=== PATIENT | female | born 2000 | race Caucasian/White ===

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

== ENCOUNTER 2018-07-02 00:21 | Emergency (ER) | payer OTHER ==
--- NOTE | 2018-07-02 02:19 | XR ---
EXAMINATION TYPE: XR chest 2V DATE OF EXAM: 07/02/2018 COMPARISON: 07/26/2016 HISTORY: Fever and cough TECHNIQUE: Frontal and lateral views of the chest are obtained. FINDINGS: Heart and mediastinum are normal. Lungs are clear. Diaphragm is normal. Bony thorax appear s normal. IMPRESSION: Normal chest. No change.
[2018-07-02] MEDS ORDERED: ACETAMINOPHEN TAB 500 MG TAB PO STA (02:20)
--- NOTE | 2018-07-02 02:25 | ED ---
General Adult HPI - General Chief complaint: Fever Stated complaint: FEVER Time Seen by Provider: 07/02/18 01:47 Source: patient, RN notes reviewed Mode of arrival: ambulatory Limitations: no limitations - History of Present Illness Initial comments: 17-year-old female presents to the emergency determine for a chief complaint of cough 3 days. Patient states the cough is dry. Patient admits to smoking. Patient does have a history of asthma. Patient denies any shortness of breath. Patient admits to lower back pain when she coughs. Denies any urinary symptoms. Patient denies any ear pain or sore throat. Patient also states she has Nasal congestion. Patient states she last took Tylenol 12 hours ago. Patient has no other complaints at this time including shortness of breath, chest pain, abdominal pain, nausea or vomiting, headache, or visual changes. - Related Data Home Medications Medication Instructions Recorded Confirmed Pnv,Calcium 72/Iron/Folic Acid 1 tab PO DAILY 07/06/17 08/27/17 [ Plus Tablet] Previous Rx's Medication Instructions Recorded Albuterol Inhaler [Ventolin Hfa 1 - 2 puff INHALATION Q6HR PRN #1 07/02/18 Inhaler] inhaler Allergies Allergy/AdvReac Type Severity Reaction Status Date / Time No Known Allergies Allergy Verified 07/02/18 00:37 Review of Systems ROS Statement: Those systems with pertinent positive or pertinent negative responses have been documented in the HPI. ROS Other: All systems not noted in ROS Statement are negative. Past Medical History Past Medical History: Asthma Additional Past Medical History / Comment(s): pt reports hx of SVT History of Any Multi-Drug Resistant Organisms: None Reported Past Surgical History: Ablation, Cholecystectomy, Heart Catheterization Additional Past Surgical History / Comment(s): heart ablation 12/2015 Past Psychological History: Anxiety Smoking Status: Current every day smoker Past Alcohol Use History: None Reported Past Drug Use History: None Reported General Exam Limitations: no limitations General appearance: alert, in no apparent distress Head exam: Present: atraumatic, normocephalic, normal inspection Eye exam: Present: normal appearance, PERRL, EOMI. Absent: scleral icterus, conjunctival injection, periorbital swelling ENT exam: Present: normal exam, normal oropharynx, mucous membranes moist, TM's normal bilaterally, normal external ear exam, other (mild nasal congestion noted. Non tender maxillary and frontal sinuses.) Neck exam: Present: normal inspection, full ROM. Absent: tenderness, meningismus, lymphadenopathy Respiratory exam: Present: normal lung sounds bilaterally. Absent: respiratory distress, wheezes (no wheezing noted), rales, rhonchi, stridor Cardiovascular Exam: Present: regular rate, normal rhythm, normal heart sounds. Absent: systolic murmur, diastolic murmur, rubs, gallop, clicks GI/Abdominal exam: Present: soft, normal bowel sounds. Absent: distended, tenderness, guarding, rebound, rigid Neurological exam: Present: alert, oriented X3, CN II-XII intact Psychiatric exam: Present: normal affect, normal mood Course Vital Signs 07/02/18 00:36 Temperature 100 F H Pulse Rate 107 H Respiratory 18 Rate Blood Pressure 113/80 O2 Sat by Pulse 99 Oximetry Medical Decision Making - Medical Decision Making 17-year-old female presents to the emergency department for a chief complaint of cough 3 days. Patient states she had a temp of 100 at home. In the emergency department patient does have a temperature of 100 and was given Tylenol. Patient complains of a dry cough with nasal congestion. Patient is a smoker. Patient does have a history of asthma but lost her inhaler when she moved. Patient will be given a prescription for an inhaler. No wheezing in the lungs on exam. Patient does have notable congestion without erythema or swelling to the sinuses. Throat nonerythematous and patient denies any sore throat. Tympanic membranes nonerythematous.Urine shows no evidence of infection. HCG negative. Chest x-ray shows a normal chest no change. Patient likely has an upper respiratory infection caused by a viral pathogen. Did discuss Motrin and Tylenol regimen as well as following up with primary care in the next day or 2. Patient is aware that she needs to return if she has any worsening symptoms or fever that will not be decreased with Motrin or Tylenol. - Lab Data Lab Results 07/02/18 07/02/18 Range/Units 02:19 02:19 Urine Color Light Yellow Urine Appearance Clear (Clear) Urine pH 6.5 (5.0-8.0) Ur Specific [place] 1.006 (1.001-1.035) Urine Protein Negative (Negative) Urine Glucose (UA) Negative (Negative) Urine Ketones Negative (Negative) Urine Blood Negative (Negative) Urine Nitrite Negative (Negative) Urine Bilirubin Negative (Negative) Urine Urobilinogen 2.0 (<2.0) mg/dL Ur Leukocyte Esterase Negative (Negative) Urine HCG, Qual Not Detected (Not Detectd) Disposition Clinical Impression: Upper respiratory infection Disposition: HOME SELF-CARE Condition: Good Instructions: Fever in Adults (ED), Upper Respiratory Infection (ED) Additional Instructions: Please follow up with primary care in 1-2 days. Take Motrin and Tylenol alternating every 3 hours for fever. If symptoms worsen or fever does not decrease with Motrin and Tylenol immediately return to the emergency department. Prescriptions: Albuterol Inhaler [Ventolin Hfa Inhaler] 1 - 2 puff INHALATION Q6HR PRN #1 inhaler PRN Reason: Shortness Of Breath Is patient prescribed a controlled substance at d/c from ED?: No Referrals: Jose Rios MD [Primary Care Provider] - 1-2 days Time of Disposition: 03:26
[2018-07-02 02:40] LABS: Appearance,Urine Clear (Clear); Bilirubin,Urine Negative (Negative); Blood,Urine Negative (Negative); Color,Urine Light Yellow; Glucose,Urine (UA) Negative (Negative); Ketones,Urine Negative (Negative); Leukocyte Esterase,Urine Negative (Negative); Nitrite,Urine Negative (Negative); PH, Urine 6.5 (5.0-8.0); Protein,Urine Negative (Negative); Specific Gravity,Urine 1.006 (1.001-1.035)
[2018-07-02 03:36] VITALS: BP 114/56; PULSE 101; RESP 16; TEMP 98.9
== END 2018-07-02 03:36 | disposition home or self-care (01) ==
LOC: EC 00:21
DX: J06.9 Acute upper respiratory infection, unspecified (principal); J45.909 Unspecified asthma, uncomplicated; F17.200 Nicotine dependence, unspecified, uncomplicated; Z95.818 Presence of other cardiac implants and grafts
CPT/HCPCS: 71046; 81003; 81025; 99283

== ENCOUNTER 2018-08-25 19:20 | Emergency (ER) | payer OTHER ==
[2018-08-25 20:18] LABS: Appearance,Urine Clear (Clear); Bilirubin,Urine Negative (Negative); Blood,Urine Small (Negative); Color,Urine Light Yellow; Glucose,Urine (UA) Negative (Negative); Ketones,Urine Negative (Negative); Leukocyte Esterase,Urine Negative (Negative); Mucus,Urine Rare /hpf; Nitrite,Urine Negative (Negative); PH, Urine 5.5 (5.0-8.0); Protein,Urine Negative (Negative); RBC,Urine 1 /hpf (0-5); Specific Gravity,Urine 1.003 (1.001-1.035); Squamous Epithelial Cell,Urine 2 /hpf (0-4); Urobilinogen,Urine <2.0 mg/dL (<2.0); WBC,Urine 2 /hpf (0-5)
--- NOTE | 2018-08-25 20:48 | ED ---
General Adult HPI - General Chief complaint: Urogenital Stated complaint: blood in urine Time Seen by Provider: 08/25/18 20:21 Source: patient, RN notes reviewed Mode of arrival: ambulatory Limitations: no limitations - History of Present Illness Initial comments: Patient is a pleasant 18-year-old female presenting to the emergency Department with complaints of hematuria. Patient noticed a couple of episodes today. Patient did not notice this with her last episode. Patient states blood is only while urinating. Patient denies any bleeding otherwise. No blood with wiping. No rectal bleeding. Patient does have an implantable control. No abdominal pain or pelvic pain. Patient did have an episode earlier today where she felt lightheaded while washing dishes, however that has resolved. - Related Data Home Medications Medication Instructions Recorded Confirmed No Known Home Medications 08/25/18 08/25/18 Allergies Allergy/AdvReac Type Severity Reaction Status Date / Time morphine AdvReac Rash/Hives Verified 08/25/18 19:44 Review of Systems ROS Statement: Those systems with pertinent positive or pertinent negative responses have been documented in the HPI. ROS Other: All systems not noted in ROS Statement are negative. Constitutional: Denies: fever Eyes: Denies: eye pain ENT: Denies: ear pain Respiratory: Denies: cough Cardiovascular: Denies: chest pain Endocrine: Denies: fatigue Gastrointestinal: Denies: abdominal pain Genitourinary: Reports: hematuria. Denies: urgency, dysuria, frequency, discharge Musculoskeletal: Denies: back pain Skin: Denies: rash Past Medical History Past Medical History: Asthma Additional Past Medical History / Comment(s): pt reports hx of SVT History of Any Multi-Drug Resistant Organisms: None Reported Past Surgical History: Ablation, Cholecystectomy, Heart Catheterization Additional Past Surgical History / Comment(s): heart ablation 12/2015 Past Psychological History: Anxiety Smoking Status: Current every day smoker Past Alcohol Use History: None Reported Past Drug Use History: None Reported General Exam Limitations: no limitations General appearance: alert, in no apparent distress Head exam: Present: atraumatic Eye exam: Present: normal appearance, PERRL, EOMI ENT exam: Present: normal oropharynx Neck exam: Present: normal inspection Respiratory exam: Present: normal lung sounds bilaterally Cardiovascular Exam: Present: regular rate, normal rhythm GI/Abdominal exam: Present: soft. Absent: tenderness Extremities exam: Present: normal inspection. Absent: pedal edema, calf tenderness Neurological exam: Present: alert, CN II-XII intact. Absent: motor sensory deficit Expanded Neurological exam: Present: protecting the airway Speech: Present: fluid speech Cranial nerves: EOM's Intact: Normal Motor strength exam: RUE: 5, LUE: 5, RLE: 5, LLE: 5 Eye Response: (4) open spontaneously Motor Response: (6) obeys commands Verbal Response: (5) oriented Psychiatric exam: Present: normal affect, normal mood Skin exam: Present: normal color Course Vital Signs 08/25/18 19:31 Temperature 98.7 F Pulse Rate 104 H Respiratory 20 Rate Blood Pressure 116/83 O2 Sat by Pulse 100 Oximetry EKG Findings - EKG Comments: EKG Findings:: Normal sinus rhythm 92. IA 124. QRS 88. QT 348. QTC 4:30. Normal axis. Normal QRS. No acute ST change. Medical Decision Making - Lab Data Lab Results 08/25/18 08/25/18 Range/Units 19:55 19:55 Urine Color Light Yellow Urine Appearance Clear (Clear) Urine pH 5.5 (5.0-8.0) Ur Specific [place] 1.003 (1.001-1.035) Urine Protein Negative (Negative) Urine Glucose (UA) Negative (Negative) Urine Ketones Negative (Negative) Urine Blood Small H (Negative) Urine Nitrite Negative (Negative) Urine Bilirubin Negative (Negative) Urine Urobilinogen <2.0 (<2.0) mg/dL Ur Leukocyte Esterase Negative (Negative) Urine RBC 1 (0-5) /hpf Urine WBC 2 (0-5) /hpf Ur Squamous Epith Cells 2 (0-4) /hpf Urine Mucus Rare H (None) /hpf Urine HCG, Qual Not Detected (Not Detectd) Disposition Clinical Impression: Hematuria Disposition: HOME SELF-CARE Condition: Stable Instructions: Hematuria (ED) Additional Instructions: Please follow-up with primary care physician in the next day or 2 for recheck. If symptoms continue you may need urology evaluation. Consider repeat urinalysis, ultrasound or possibly cystoscopy. Have primary care physician check urine culture results. Return for pain, increased bleeding, worsening or changing symptoms or other concerns. Is patient prescribed a controlled substance at d/c from ED?: No Referrals: Christen Dias MD [STAFF PHYSICIAN] - 1-2 days Time of Disposition: 20:48
[2018-08-25 21:00] VITALS: BP 120/74; PULSE 97; RESP 16; TEMP 98.6
== END 2018-08-25 21:00 | disposition home or self-care (01) ==
LOC: EC 19:20
DX: R31.9 Hematuria, unspecified (principal); R42 Dizziness and giddiness; F17.200 Nicotine dependence, unspecified, uncomplicated; Z88.5 Allergy status to narcotic agent; Z95.818 Presence of other cardiac implants and grafts
CPT/HCPCS: 81001; 81025; 93005; 99283

== ENCOUNTER 2018-11-23 18:56 | Emergency (ER) | payer OTHER ==
--- NOTE | 2018-11-23 20:58 | XR ---
EXAMINATION TYPE: XR chest 2V DATE OF EXAM: 11/23/2018 COMPARISON: 07/02/2018 HISTORY: Cough TECHNIQUE: Frontal and lateral views of the chest are obtained. FINDINGS: Heart and mediastinum are normal. Lungs are clear. Diaphragm is normal. Bony thorax and so ft tissues appear normal. IMPRESSION: Normal chest. No change.
[2018-11-23 21:04] VITALS: BP 103/79; PULSE 100; RESP 17; TEMP 97.2
--- NOTE | 2018-11-23 21:08 | ED ---
URI HPI - General Chief Complaint: Upper Respiratory Infection Stated Complaint: coughing Time Seen by Provider: 11/23/18 20:37 Source: patient Mode of arrival: ambulatory Limitations: no limitations - History of Present Illness Initial Comments: 18-year-old male with PMH of SVT presenting today for chief complaint of cough and congestion times one week. Patient denies any fever. He doesn't that to coughing for the past week, he states this increases at night. Patient denies any productive sputum production, wheezing, stridor, fever or chills or rigors. Patient denies body aches. Patient does admit to sore throat he feels is secondary to cough. Patient denies any chest pain, dyspnea or dyspnea on exertion. Patient denies any hemoptysis. Patient denies abdominal pain, diarrhea, nausea, vomiting or any other social symptoms. Patient states that everyone in the household with similar symptoms. Remainder of ROS negative, patient denies any ear pain, sinus pressure numbness or tingling, dysuria or hematuria, constipation or diarrhea, headaches or visual changes, or any other complaints. Upon arrival patient is well-appearing, vital signs within acceptable limits. I read triage note stating back pain, pt made inquisitive face stating she does not have any sort of back pain or chest pain. - Related Data Previous Rx's Medication Instructions Recorded Ipratropium [place] 0.06%Nasal 2 spray EA NOSTRIL BID 4 Days #1 11/23/18 [Atrovent Nasal 0.06%] bottle Allergies Allergy/AdvReac Type Severity Reaction Status Date / Time amoxicillin Allergy Anaphylaxis Verified 11/23/18 19:24 morphine AdvReac Rash/Hives Verified 08/25/18 19:44 Review of Systems ROS Statement: Those systems with pertinent positive or pertinent negative responses have been documented in the HPI. ROS Other: All systems not noted in ROS Statement are negative. Past Medical History Past Medical History: Asthma Additional Past Medical History / Comment(s): pt reports hx of SVT History of Any Multi-Drug Resistant Organisms: None Reported Past Surgical History: Ablation, Cholecystectomy, Heart Catheterization Additional Past Surgical History / Comment(s): heart ablation 12/2015 Past Psychological History: Anxiety Smoking Status: Current every day smoker Past Alcohol Use History: None Reported Past Drug Use History: None Reported General Exam - General Exam Comments Initial Comments: General: The patient is awake and alert, in no distress, and does not appear acutely ill. Eye: Pupils are equal, round and reactive to light, extra-ocular movements are intact. No nystagmus. There is normal conjunctiva bilaterally. No signs of icterus. Ears, nose, mouth and throat: There are moist mucous membranes and no oral lesions. Oropharynx was not erythematous, no tonsillar enlargement exudates or lesion. Uvula midline. Tympanic membranes are not erythematous no bulging retractions effusions or tympanic membrane perforation. External auditory canal is nonedematous or erythematous. No pain to palpation the mastoid. No sinus pressure of the frontal or maxillary sinuses. Postnasal drip noted. Neck: The neck is supple, there is no tenderness or JVD. No anterior cervical lymphadenopathy. Cardiovascular: There is a regular rate and rhythm. No murmur, rub or gallop is appreciated. Respiratory: Lungs are clear to auscultation, respirations are non-labored, breath sounds are equal. No wheezes, stridor, rales, or rhonchi. No signs of consolidation on examination. Audible dry cough on exam. Gastrointestinal: Soft, non-distended, non-tender abdomen without masses or organomegaly noted. There is no rebound or guarding present. No CVA tenderness. Bowel sounds are unremarkable. Musculoskeletal: Normal ROM, no tenderness. Strength 5/5. Sensation intact. Radial pulses equal bilaterally 2+. Neurological: A&O x 3. CN II-XII intact, There are no obvious motor or sensory deficits. Coordination appears grossly intact. Speech is normal. Skin: Skin is warm and dry and no rashes or lesions are noted. Psychiatric: Cooperative, appropriate mood & affect, normal judgment. Limitations: no limitations Course Vital Signs 11/23/18 11/23/18 19:22 21:01 Temperature 98.2 F 97.2 F L Pulse Rate 121 H 100 Respiratory 20 17 Rate Blood Pressure 114/66 103/79 O2 Sat by Pulse 99 97 Oximetry Medical Decision Making - Medical Decision Making At this time I do feel patient has bronchitis, upper respiratory infection. No areas of consolidation noted on examination. Patient appears well, nontoxic. Examination revealed postnasal drip and clear rhinorrhea. Chest x-ray negative. Patient was given medications for symptomatic treatment. I do feel patient is stable for discharge with primary care follow-up in the next 1-2 days. Return parameters discussed at length the patient who verbalized understanding. Patient was discharged in stable condition after discussing the case in detail with attending physician. Who agreed impression and plan. Patient discharged in stable condition appearing well. Denied questions at this time. Disposition Clinical Impression: Bronchitis Disposition: HOME SELF-CARE Condition: Good Instructions: Upper Respiratory Infection (ED), Acute Bronchitis (ED) Additional Instructions: Please use medication as discussed. Please follow-up with family doctor in the next 2 days. Please return to emergency room if the symptoms increase or worsen or for any other concerns. Prescriptions: Ipratropium [place] 0.06%Nasal [Atrovent Nasal 0.06%] 2 spray EA NOSTRIL BID 4 Days #1 bottle Is patient prescribed a controlled substance at d/c from ED?: No Referrals: None,Stated [Primary Care Provider] - 1-2 days [facility] [NON-STAFF] - 1-2 days Time of Disposition: 21:07
== END 2018-11-23 21:13 | disposition home or self-care (01) ==
LOC: EC 18:56
DX: J40 Bronchitis, not specified as acute or chronic (principal); F17.200 Nicotine dependence, unspecified, uncomplicated; Z95.5 Presence of coronary angioplasty implant and graft; Z88.0 Allergy status to penicillin; Z88.5 Allergy status to narcotic agent
CPT/HCPCS: 71046; 99283

== ENCOUNTER 2019-01-14 21:39 | Emergency (ER) | payer OTHER ==
[2019-01-14] MEDS ORDERED: ONDANSETRON 4 MG/2 ML VIAL IVP STA (22:47)
[2019-01-14] MEDS ORDERED: SODIUM CHLORIDE 0.9% 1,000 ML IV STA (22:47)
[2019-01-14] MEDS ORDERED: KETOROLAC 30 MG/ML 1 ML VIAL IVP STA (22:47)
--- NOTE | 2019-01-14 22:59 | ED ---
Abdominal Pain HPI - General Chief Complaint: Abdominal Pain Stated Complaint: Lower rt side pain Time Seen by Provider: 01/14/19 22:05 Source: patient Mode of arrival: ambulatory Limitations: no limitations - History of Present Illness Initial Comments: 18-year-old female patient presents to the emergency department today for evaluation of abdominal pain. Patient states that pain started in the midepigastric region about 4 days ago and has migrated down to the lower right quadrant abdomen now radiating into the right flank. Patient states she has been nauseated but has not vomited. Patient states the pain seems to be worsening rather than getting better. Patient states she has had some constipation. She states she is urinating more frequently but denies any dysuria or hematuria. She denies any fevers or chills with this. Denies any abnormal vaginal bleeding or discharge. States she did take a test at home which was negative. She has had cholecystectomy in the past but no other abdominal surgeries. Patient denies any recent rash, shortness breath, chest pain, numbness, tingling, dizziness, weakness, headache, visual changes, or any other complaints. - Related Data Previous Rx's Medication Instructions Recorded Ipratropium Bone Gap 0.06%Nasal 2 spray EA NOSTRIL BID 4 Days #1 11/23/18 [Atrovent Nasal 0.06%] bottle Allergies Allergy/AdvReac Type Severity Reaction Status Date / Time amoxicillin Allergy Anaphylaxis Verified 01/14/19 22:15 morphine AdvReac Rash/Hives Verified 01/14/19 22:15 Review of Systems ROS Statement: Those systems with pertinent positive or pertinent negative responses have been documented in the HPI. ROS Other: All systems not noted in ROS Statement are negative. Past Medical History Past Medical History: Asthma Additional Past Medical History / Comment(s): pt reports hx of SVT History of Any Multi-Drug Resistant Organisms: None Reported Past Surgical History: Ablation, Cholecystectomy, Heart Catheterization Additional Past Surgical History / Comment(s): heart ablation 12/2015 Past Psychological History: Anxiety Smoking Status: Current every day smoker Past Alcohol Use History: None Reported Past Drug Use History: None Reported General Exam Limitations: no limitations General appearance: alert, in no apparent distress, other (Physical well- developed, well-nourished adult female patient in no acute distress. Vital signs upon presentation are temperature 97.8F, pulse 106, respirations 20, blood pressure 123/82, pulse ox 100% on room air.) Eye exam: Present: normal appearance, PERRL, EOMI. Absent: scleral icterus, conjunctival injection, periorbital swelling ENT exam: Present: normal exam, normal oropharynx, mucous membranes moist Respiratory exam: Present: normal lung sounds bilaterally. Absent: respiratory distress, wheezes, rales, rhonchi, stridor Cardiovascular Exam: Present: regular rate, normal rhythm, normal heart sounds. Absent: systolic murmur, diastolic murmur, rubs, gallop, clicks GI/Abdominal exam: Present: soft, tenderness (Right lower quadrant and suprapubic abdominal tenderness), normal bowel sounds. Absent: distended, guarding, rebound, rigid Back exam: Present: normal inspection. Absent: CVA tenderness (R), CVA tenderness (L) Neurological exam: Present: alert, oriented X3, CN II-XII intact Psychiatric exam: Present: normal affect, normal mood Skin exam: Present: warm, dry, intact, normal color. Absent: rash Course Vital Signs 01/14/19 21:41 Temperature 97.8 F Pulse Rate 106 H Respiratory 20 Rate Blood Pressure 123/82 O2 Sat by Pulse 100 Oximetry Medical Decision Making - Medical Decision Making 18-year-old female patient presents to the emergency department today for evaluation of abdominal pain that started in the midepigastric region and migrated to the suprapubic and right lower quadrant. Physical examination did reveal right lower quadrant and suprapubic tenderness. Labs reviewed and did reveal elevated white blood cell count at 11.4, CRP was 10.5. Patient did report mild improvement of symptoms with the administration of Toradol. We did CT abdomen and pelvis to rule out appendicitis, this was negative for any evidence of appendicitis did reveal a 2.600 m cystic lesion to the left ovary, it is unclear this is a cause for the patient's symptoms. Patient does admit to having constipation. X-ray of the abdomen shows normal stool burden. We'll discharge home with a stool softener. She is instructed to follow-up with her primary care physician and first leveler for recheck as soon as possible. Return to the emergency department for any new, worsening, or concerning symptoms. She verbalizes understanding and agrees with this plan. - Lab Data Result diagrams: 01/14/19 23:12 01/14/19 23:12 Lab Results 01/14/19 01/14/19 01/14/19 Range/Units 23:12 23:12 23:12 WBC 11.4 H (4.0-11.0) k/uL RBC 5.23 (3.80-5.40) m/uL Hgb 13.2 (11.4-16.0) gm/dL Hct 41.6 (34.0-46.0) % MCV 79.6 L (80.0-100.0) fL MCH 25.3 (25.0-35.0) pg MCHC 31.7 (31.0-37.0) g/dL RDW 17.0 H (11.5-15.5) % Plt Count 342 (150-450) k/uL Neutrophils % 60 % Lymphocytes % 33 % Monocytes % 4 % Eosinophils % 2 % Basophils % 0 % Neutrophils # 6.8 (1.3-7.7) k/uL Lymphocytes # 3.7 (1.0-4.8) k/uL Monocytes # 0.4 (0-1.0) k/uL Eosinophils # 0.2 (0-0.7) k/uL Basophils # 0.1 (0-0.2) k/uL Anisocytosis Slight Microcytosis Slight Sodium 141 (137-145) mmol/L Potassium 3.9 (3.5-5.1) mmol/L Chloride 110 H (98-107) mmol/L Carbon Dioxide 24 (22-30) mmol/L Anion Gap 7 mmol/L BUN 9 (7-17) mg/dL Creatinine 0.61 (0.52-1.04) mg/dL Est GFR (CKD-EPI)AfAm >90 (>60 ml/min/1.73 sqM) Est GFR (CKD-EPI)NonAf >90 (>60 ml/min/1.73 sqM) Glucose 98 (74-99) mg/dL Calcium 9.7 (8.4-10.2) mg/dL Total Bilirubin 0.3 (0.2-1.3) mg/dL AST 20 (14-36) U/L ALT 40 (9-52) U/L Alkaline Phosphatase 128 H (38-126) U/L C-Reactive Protein 10.5 H (<10.0) mg/L Total Protein 7.0 (6.3-8.2) g/dL Albumin 4.1 (3.5-5.0) g/dL Amylase 83 (30-110) U/L Lipase 132 (23-300) U/L Urine Color Light Yellow Urine Appearance Clear (Clear) Urine pH 6.0 (5.0-8.0) Ur Specific [place] 1.004 (1.001-1.035) Urine Protein Negative (Negative) Urine Glucose (UA) Negative (Negative) Urine Ketones Negative (Negative) Urine Blood Negative (Negative) Urine Nitrite Negative (Negative) Urine Bilirubin Negative (Negative) Urine Urobilinogen <2.0 (<2.0) mg/dL Ur Leukocyte Esterase Negative (Negative) Urine HCG, Qual (Not Detectd) 01/14/19 Range/Units 23:12 WBC (4.0-11.0) k/uL RBC (3.80-5.40) m/uL Hgb (11.4-16.0) gm/dL Hct (34.0-46.0) % MCV (80.0-100.0) fL MCH (25.0-35.0) pg MCHC (31.0-37.0) g/dL RDW (11.5-15.5) % Plt Count (150-450) k/uL Neutrophils % % Lymphocytes % % Monocytes % % Eosinophils % % Basophils % % Neutrophils # (1.3-7.7) k/uL Lymphocytes # (1.0-4.8) k/uL Monocytes # (0-1.0) k/uL Eosinophils # (0-0.7) k/uL Basophils # (0-0.2) k/uL Anisocytosis Microcytosis Sodium (137-145) mmol/L Potassium (3.5-5.1) mmol/L Chloride (98-107) mmol/L Carbon Dioxide (22-30) mmol/L Anion Gap mmol/L BUN (7-17) mg/dL Creatinine (0.52-1.04) mg/dL Est GFR (CKD-EPI)AfAm (>60 ml/min/1.73 sqM) Est GFR (CKD-EPI)NonAf (>60 ml/min/1.73 sqM) Glucose (74-99) mg/dL Calcium (8.4-10.2) mg/dL Total Bilirubin (0.2-1.3) mg/dL AST (14-36) U/L ALT (9-52) U/L Alkaline Phosphatase (38-126) U/L C-Reactive Protein (<10.0) mg/L Total Protein (6.3-8.2) g/dL Albumin (3.5-5.0) g/dL Amylase (30-110) U/L Lipase (23-300) U/L Urine Color Urine Appearance (Clear) Urine pH (5.0-8.0) Ur Specific [place] (1.001-1.035) Urine Protein (Negative) Urine Glucose (UA) (Negative) Urine Ketones (Negative) Urine Blood (Negative) Urine Nitrite (Negative) Urine Bilirubin (Negative) Urine Urobilinogen (<2.0) mg/dL Ur Leukocyte Esterase (Negative) Urine HCG, Qual Not Detected (Not Detectd) - Radiology Data Radiology results: report reviewed, image reviewed Two-view x-rays of the abdomen is obtained. Report was reviewed in its entirety. Impression by Dr. Orourke shows nonspecific bowel gas pattern with paucity of small bowel gas. Some gas and stool seen throughout the colon. Status post cholecystectomy noted. CT abdomen and pelvis is obtained. Report was reviewed in its entirety. Impression by Dr. Orourke shows status post cholecystectomy. 2.6 cm cystic lesion of the left ovary. Normal appendix. Disposition Clinical Impression: Abdominal pain, Left ovarian cyst Disposition: HOME SELF-CARE Condition: Good Instructions (If sedation given, give patient instructions): Abdominal Pain (ED ), Ovarian Cyst (ED) Additional Instructions: Increase fluids. Take ibuprofen for for pain control. Follow-up with her primary care physician for recheck in 1-2 days. Follow-up with gynecology as needed. Return to the emergency department immediately for any new, worsening, or concerning symptoms. Is patient prescribed a controlled substance at d/c from ED?: No Referrals: None,Stated [Primary Care Provider] - 1-2 days Time of Disposition: 00:56
[2019-01-14 23:20] LABS: Anisocytosis Slight; Appearance,Urine Clear (Clear); Basophils # (A) 0.1 k/uL (0-0.2); Basophils % (A) 0 %; Bilirubin,Urine Negative (Negative); Blood,Urine Negative (Negative); Color,Urine Light Yellow; Eosinophils # (A) 0.2 k/uL (0-0.7); Eosinophils % (A) 2 %; Glucose,Urine (UA) Negative (Negative); HCT 41.6 % (34.0-46.0); HGB 13.2 gm/dL (11.4-16.0); Ketones,Urine Negative (Negative); Leukocyte Esterase,Urine Negative (Negative); Lymphocytes # (A) 3.7 k/uL (1.0-4.8); Lymphocytes % (A) 33 %; MCH 25.3 pg (25.0-35.0); MCHC 31.7 g/dL (31.0-37.0); MCV 79.6 fL (80.0-100.0); Mean Platelet Volume 7.3; Microcytosis Slight; Monocytes # (A) 0.4 k/uL (0-1.0); Monocytes % (A) 4 %; Neutrophils # (A) 6.8 k/uL (1.3-7.7); Neutrophils % (A) 60 %; Nitrite,Urine Negative (Negative); Platelet Count 342 k/uL (150-450); Protein,Urine Negative (Negative); RBC 5.23 m/uL (3.80-5.40); Specific Gravity,Urine 1.004 (1.001-1.035); Urobilinogen,Urine <2.0 mg/dL (<2.0); WBC 11.4 k/uL (4.0-11.0)
[2019-01-14 23:31] LABS: ALT 40 U/L (9-52); AST 20 U/L (14-36); Albumin 4.1 g/dL (3.5-5.0); Alkaline Phosphatase 128 U/L (38-126); Amylase 83 U/L (30-110); Anion Gap 7 mmol/L; Blood Urea Nitrogen 9 mg/dL (7-17); C Reactive Protein 10.5 mg/L (<10.0); Calcium 9.7 mg/dL (8.4-10.2); Carbon Dioxide 24 mmol/L (22-30); Chloride 110 mmol/L (98-107); Glucose 98 mg/dL (74-99); Lipase 132 U/L (23-300); Potassium 3.9 mmol/L (3.5-5.1); Sodium 141 mmol/L (137-145); Total Bilirubin 0.3 mg/dL (0.2-1.3)
--- NOTE | 2019-01-14 23:46 | XR ---
History: ITS.REASON XR Reason: abdominal pain Exam: XR KUB 2 total images Comparison: 08/21/2016 FINDINGS: Nonspecific bowel gas pattern with paucity of small bowel gas. Some gas and stool is seen throughout the colon. No gaseous distention of bowel or free air identified. Status post cholecystectomy again noted. The visualized lung bases appear clear. The visualized osseous structures appear unremarkable. IMPRESSION: Nonspecific bowel gas pattern with paucity of small bowel gas. Some gas and stool is seen throughout the colon. Status post cholecystectomy again noted.
--- NOTE | 2019-01-15 00:49 | CT ---
History: ITS.REASON CT Reason: Pain Exam: CT ABDOMEN + PELVIS With Contrast Technique more: CTDI is 10.6 mGy and DLP is 1080.7 mGy-cm. Technique more: This CT exam was performed using one or more of the following dose reduction techniques: automated exposure control, adjustment of the mA and/or kV according to patient size, and/or use of iterative reconstruction technique. Comparison: FINDINGS: The lung bases are clear. Abdominal solid organs and abdominal aorta appear within limits. Status post cholecystectomy. No bowel dilation or free air. Normal caliber appendix without secondary signs. 2.6 cm cystic lesion left ovary. The right ovary, uterus and bladder appear within limits. No free fluid. IMPRESSION: Status post cholecystectomy. 2.6 cm cystic lesion left ovary. May correlate further with ultrasound as warranted.
[2019-01-15 01:10] VITALS: BP 115/83; PULSE 89; RESP 18; TEMP 97.9
== END 2019-01-15 01:10 | disposition home or self-care (01) ==
LOC: EC 21:39
DX: N83.202 Unspecified ovarian cyst, left side (principal); R10.31 Right lower quadrant pain; K59.00 Constipation, unspecified; D72.829 Elevated white blood cell count, unspecified; R35.0 Frequency of micturition; F17.200 Nicotine dependence, unspecified, uncomplicated; Z88.0 Allergy status to penicillin; Z88.5 Allergy status to narcotic agent; Z90.49 Acquired absence of other specified parts of digestive tract
CPT/HCPCS: 99284; 96374; 96375; 96361; 36415; 80053; 82150; 83690; 85025; 86140; 81003; 81025; 74018; 74177; J2405; J1885; Q9967

== ENCOUNTER 2019-01-19 15:17 | Emergency (ER) | payer OTHER ==
[2019-01-19] MEDS ORDERED: SODIUM CHLORIDE 0.9% 1,000 ML IV STA (16:37)
[2019-01-19] MEDS ORDERED: ONDANSETRON 4 MG/2 ML VIAL IVP STA (16:37)
[2019-01-19] MEDS ORDERED: KETOROLAC 30 MG/ML 1 ML VIAL IVP STA (16:37)
[2019-01-19] MEDS ORDERED: PANTOPRAZOLE 40 MG/10 ML VIAL IVP STA (16:37)
--- NOTE | 2019-01-19 16:41 | ED ---
Abdominal Pain HPI - General Chief Complaint: Abdominal Pain Stated Complaint: Right lower abd pain, vomiting Time Seen by Provider: 01/19/19 16:27 Source: patient, RN notes reviewed, old records reviewed Mode of arrival: ambulatory Limitations: no limitations - History of Present Illness Initial Comments: Patient is a 18 year old female for reevaluation for RLQ abdominal pain. Patient was given emergency department 2 days ago for similar complaints. Had a full workup including computed tomography scan. Everything was benign. Patient reports that she's had no fevers or chills. She reports normal examination in bowel habits. Patient states that she is in the pain was persistent and she needed to be reevaluated. Patient has had nausea but no vomiting. - Related Data Previous Rx's Medication Instructions Recorded Famotidine [Pepcid] 20 mg PO BID #20 tablet 01/19/19 Ondansetron Odt [Zofran Odt] 4 mg PO Q8HR PRN #12 tab 01/19/19 Allergies Allergy/AdvReac Type Severity Reaction Status Date / Time amoxicillin Allergy Anaphylaxis Verified 01/19/19 17:34 morphine AdvReac Rash/Hives Verified 01/19/19 17:34 Review of Systems ROS Statement: Those systems with pertinent positive or pertinent negative responses have been documented in the HPI. ROS Other: All systems not noted in ROS Statement are negative. Past Medical History Past Medical History: Asthma Additional Past Medical History / Comment(s): pt reports hx of SVT History of Any Multi-Drug Resistant Organisms: None Reported Past Surgical History: Ablation, Cholecystectomy, Heart Catheterization Additional Past Surgical History / Comment(s): heart ablation 12/2015 d and c Past Psychological History: Anxiety Smoking Status: Current every day smoker Past Alcohol Use History: None Reported Past Drug Use History: None Reported General Exam - General Exam Comments Initial Comments: 18-year-old female. Alert and oriented 3. No distress. Limitations: no limitations General appearance: alert Head exam: Present: atraumatic, normocephalic, normal inspection Eye exam: Present: normal appearance, PERRL, EOMI. Absent: scleral icterus, conjunctival injection, periorbital swelling ENT exam: Present: normal exam, mucous membranes moist Neck exam: Present: normal inspection. Absent: tenderness, meningismus, lymphadenopathy Respiratory exam: Present: normal lung sounds bilaterally. Absent: respiratory distress, wheezes, rales, rhonchi, stridor Cardiovascular Exam: Present: regular rate, normal rhythm, normal heart sounds. Absent: systolic murmur, diastolic murmur, rubs, gallop, clicks GI/Abdominal exam: Present: soft, tenderness (minimal right lower quadrant and right upper quadrant tenderness. No guarding rebound tenderness.), normal bowel sounds. Absent: distended, guarding, rebound, rigid Extremities exam: Present: normal inspection, full ROM, normal capillary refill. Absent: tenderness, pedal edema, joint swelling, calf tenderness Back exam: Present: normal inspection Neurological exam: Present: alert, oriented X3, CN II-XII intact Psychiatric exam: Present: normal affect, normal mood Skin exam: Present: warm, dry, intact, normal color. Absent: rash Course Vital Signs 01/19/19 01/19/19 15:30 18:13 Temperature 98.2 F 97.7 F Pulse Rate 109 H 96 Respiratory 20 16 Rate Blood Pressure 110/72 124/75 O2 Sat by Pulse 98 99 Oximetry Medical Decision Making - Medical Decision Making Patient is 18-year-old female up for reevaluation of her right lower quadrant abdominal pain. She had a computed tomography scan that time she'll show up ovarian cyst. Patient has had no fever this time. She is given IV fluid and labwork obtained. Lab work is stable compared to her last one. Patient has had no other symptoms that are concerning at this time. She's had no rebound tenderness or guarding on exam. Discussed no need to repeat CT. Patient agrees. Discussed that Patient should follow-up with her PCP. ASIANS WERE ANSWERED AND RETURN PARAMETERS WERE DISCUSSED. - Lab Data Result diagrams: 01/19/19 16:57 01/19/19 16:57 Lab Results 01/19/19 01/19/19 01/19/19 Range/Units 16:57 16:57 16:57 WBC (4.0-11.0) k/uL RBC (3.80-5.40) m/uL Hgb (11.4-16.0) gm/dL Hct (34.0-46.0) % MCV (80.0-100.0) fL MCH (25.0-35.0) pg MCHC (31.0-37.0) g/dL RDW (11.5-15.5) % Plt Count (150-450) k/uL Neutrophils % % Lymphocytes % % Monocytes % % Eosinophils % % Basophils % % Neutrophils # (1.3-7.7) k/uL Lymphocytes # (1.0-4.8) k/uL Monocytes # (0-1.0) k/uL Eosinophils # (0-0.7) k/uL Basophils # (0-0.2) k/uL Anisocytosis Microcytosis Sodium 140 (137-145) mmol/L Potassium 4.6 (3.5-5.1) mmol/L Chloride 111 H (98-107) mmol/L Carbon Dioxide 20 L (22-30) mmol/L Anion Gap 9 mmol/L BUN 13 (7-17) mg/dL Creatinine 0.57 (0.52-1.04) mg/dL Est GFR (CKD-EPI)AfAm >90 (>60 ml/min/1.73 sqM) Est GFR (CKD-EPI)NonAf >90 (>60 ml/min/1.73 sqM) Glucose 89 (74-99) mg/dL Calcium 9.7 (8.4-10.2) mg/dL Total Bilirubin 0.4 (0.2-1.3) mg/dL AST 24 (14-36) U/L ALT 29 (9-52) U/L Alkaline Phosphatase 141 H (38-126) U/L Total Protein 7.1 (6.3-8.2) g/dL Albumin 4.1 (3.5-5.0) g/dL Amylase 86 (30-110) U/L Lipase 137 (23-300) U/L Urine Color Yellow Urine Appearance Cloudy H (Clear) Urine pH 6.0 (5.0-8.0) Ur Specific [place] 1.020 (1.001-1.035) Urine Protein Negative (Negative) Urine Glucose (UA) Negative (Negative) Urine Ketones Negative (Negative) Urine Blood Negative (Negative) Urine Nitrite Negative (Negative) Urine Bilirubin Negative (Negative) Urine Urobilinogen <2.0 (<2.0) mg/dL Ur Leukocyte Esterase Negative (Negative) Urine RBC 1 (0-5) /hpf Urine WBC 3 (0-5) /hpf Ur Squamous Epith Cells 11 H (0-4) /hpf Urine Mucus Occasional H (None) /hpf Urine HCG, Qual Not Detected (Not Detectd) 01/19/19 Range/Units 16:57 WBC 12.7 H (4.0-11.0) k/uL RBC 5.09 (3.80-5.40) m/uL Hgb 12.9 (11.4-16.0) gm/dL Hct 40.6 (34.0-46.0) % MCV 79.7 L (80.0-100.0) fL MCH 25.4 (25.0-35.0) pg MCHC 31.9 (31.0-37.0) g/dL RDW 16.6 H (11.5-15.5) % Plt Count 349 (150-450) k/uL Neutrophils % 68 % Lymphocytes % 25 % Monocytes % 4 % Eosinophils % 3 % Basophils % 1 % Neutrophils # 8.6 H (1.3-7.7) k/uL Lymphocytes # 3.1 (1.0-4.8) k/uL Monocytes # 0.5 (0-1.0) k/uL Eosinophils # 0.4 (0-0.7) k/uL Basophils # 0.1 (0-0.2) k/uL Anisocytosis Slight Microcytosis Slight Sodium (137-145) mmol/L Potassium (3.5-5.1) mmol/L Chloride (98-107) mmol/L Carbon Dioxide (22-30) mmol/L Anion Gap mmol/L BUN (7-17) mg/dL Creatinine (0.52-1.04) mg/dL Est GFR (CKD-EPI)AfAm (>60 ml/min/1.73 sqM) Est GFR (CKD-EPI)NonAf (>60 ml/min/1.73 sqM) Glucose (74-99) mg/dL Calcium (8.4-10.2) mg/dL Total Bilirubin (0.2-1.3) mg/dL AST (14-36) U/L ALT (9-52) U/L Alkaline Phosphatase (38-126) U/L Total Protein (6.3-8.2) g/dL Albumin (3.5-5.0) g/dL Amylase (30-110) U/L Lipase (23-300) U/L Urine Color Urine Appearance (Clear) Urine pH (5.0-8.0) Ur Specific [place] (1.001-1.035) Urine Protein (Negative) Urine Glucose (UA) (Negative) Urine Ketones (Negative) Urine Blood (Negative) Urine Nitrite (Negative) Urine Bilirubin (Negative) Urine Urobilinogen (<2.0) mg/dL Ur Leukocyte Esterase (Negative) Urine RBC (0-5) /hpf Urine WBC (0-5) /hpf Ur Squamous Epith Cells (0-4) /hpf Urine Mucus (None) /hpf Urine HCG, Qual (Not Detectd) Disposition Clinical Impression: Nausea & vomiting, Gastritis Disposition: HOME SELF-CARE Condition: Good Instructions (If sedation given, give patient instructions): Gastritis (ED), Acute Nausea and Vomiting (ED) Additional Instructions: Patient has a follow-up with primary care physician. Return to emergency department if any alarming signs or symptoms occur. Prescriptions: Famotidine [Pepcid] 20 mg PO BID #20 tablet Ondansetron Odt [Zofran Odt] 4 mg PO Q8HR PRN #12 tab PRN Reason: Nausea Is patient prescribed a controlled substance at d/c from ED?: No Referrals: None,Stated [Primary Care Provider] - 1-2 days Christen Dias MD [STAFF PHYSICIAN] - 1-2 days Vickie Sorensen MD [STAFF PHYSICIAN] - 1-2 days Time of Disposition: 17:26
[2019-01-19 17:18] LABS: Anisocytosis Slight; Basophils # (A) 0.1 k/uL (0-0.2); Basophils % (A) 1 %; Eosinophils # (A) 0.4 k/uL (0-0.7); Eosinophils % (A) 3 %; HCT 40.6 % (34.0-46.0); HGB 12.9 gm/dL (11.4-16.0); Lymphocytes # (A) 3.1 k/uL (1.0-4.8); Lymphocytes % (A) 25 %; MCH 25.4 pg (25.0-35.0); MCHC 31.9 g/dL (31.0-37.0); MCV 79.7 fL (80.0-100.0); Mean Platelet Volume 6.8; Microcytosis Slight; Monocytes # (A) 0.5 k/uL (0-1.0); Monocytes % (A) 4 %; Neutrophils # (A) 8.6 k/uL (1.3-7.7); Neutrophils % (A) 68 %; Platelet Count 349 k/uL (150-450); RBC 5.09 m/uL (3.80-5.40); RDW 16.6 % (11.5-15.5); WBC 12.7 k/uL (4.0-11.0)
[2019-01-19 17:19] LABS: Appearance,Urine Cloudy (Clear); Bilirubin,Urine Negative (Negative); Blood,Urine Negative (Negative); Color,Urine Yellow; Glucose,Urine (UA) Negative (Negative); Ketones,Urine Negative (Negative); Leukocyte Esterase,Urine Negative (Negative); Mucus,Urine Occasional /hpf; Nitrite,Urine Negative (Negative); Protein,Urine Negative (Negative); RBC,Urine 1 /hpf (0-5); Squamous Epithelial Cell,Urine 11 /hpf (0-4); Urobilinogen,Urine <2.0 mg/dL (<2.0); WBC,Urine 3 /hpf (0-5)
[2019-01-19 17:23] LABS: ALT 29 U/L (9-52); AST 24 U/L (14-36); Albumin 4.1 g/dL (3.5-5.0); Alkaline Phosphatase 141 U/L (38-126); Amylase 86 U/L (30-110); Anion Gap 9 mmol/L; Blood Urea Nitrogen 13 mg/dL (7-17); Calcium 9.7 mg/dL (8.4-10.2); Carbon Dioxide 20 mmol/L (22-30); Chloride 111 mmol/L (98-107); Glucose 89 mg/dL (74-99); Lipase 137 U/L (23-300); Potassium 4.6 mmol/L (3.5-5.1); Sodium 140 mmol/L (137-145); Total Bilirubin 0.4 mg/dL (0.2-1.3); Total Protein 7.1 g/dL (6.3-8.2)
[2019-01-19 18:15] VITALS: BP 124/75; PULSE 96; RESP 16; TEMP 97.7
== END 2019-01-19 18:18 | disposition home or self-care (01) ==
LOC: EC 15:17
DX: K29.70 Gastritis, unspecified, without bleeding (principal); F17.200 Nicotine dependence, unspecified, uncomplicated; Z88.0 Allergy status to penicillin; Z88.5 Allergy status to narcotic agent; Z90.49 Acquired absence of other specified parts of digestive tract; Z95.818 Presence of other cardiac implants and grafts
CPT/HCPCS: 36415; 80053; 82150; 83690; 85025; 81001; 81025; 99284; 96374; 96375 ×2; 96361; J2405; J1885; C9113

== ENCOUNTER 2019-03-27 18:37 | Emergency (ER) | payer OTHER ==
[2019-03-27 18:42] VITALS: BP 105/69; RESP 18
[2019-03-27] MEDS ORDERED: ONDANSETRON 4 MG/2 ML VIAL IVP STA (18:44)
[2019-03-27] MEDS ORDERED: SODIUM CHLORIDE 0.9% 1,000 ML IV STA (18:44)
--- NOTE | 2019-03-27 19:08 | ED ---
General Adult HPI - General Chief complaint: Nausea/Vomiting/Diarrhea Stated complaint: Vomiting/chest pain Time Seen by Provider: 03/27/19 18:43 Source: patient Mode of arrival: ambulatory Limitations: no limitations - History of Present Illness Initial comments: Dictation was produced using [employer] dictation software. please excuse any grammatical, word or spelling errors. Chief Complaint: 18-year-old female no significant past medical history presents with nausea vomiting diarrhea. History of Present Illness: 18-year-old female presents with nausea vomiting diarrhea. Patient states she had the symptoms for approximately one day. Denies any overt sick contacts. Patient states she has some mild right upper quadrant epigastric pain. Patient states her diarrhea is nonbloody nonbilious. Patient's emesis is also nonbloody and nonbilious. Patient states she tried to drink water throughout up however she was able to drink some Gatorade and keep it down. Denies any constitutional symptoms. The ROS documented in this emergency department record has been reviewed and confirmed by me. Those systems with pertinent positive or negative responses have been documented in the HPI. All other systems are other negative and/or noncontributory. PHYSICAL EXAM: General Impression: Alert and oriented x3, not in acute distress HEENT: Normocephalic atraumatic, extra-ocular movements intact, pupils equal and reactive to light bilaterally, mucous membranes moist. Cardiovascular: Heart regular rate and rhythm, S1&S2 audible, no murmurs, rubs or gallops Chest: Lungs clear to auscultation bilaterally, no rhonchi, no wheeze, no rales Abdomen: Bowel sounds present, abdomen soft, mild tenderness in the right upper quadrant, non-distended, no organomegaly, negative Mitchell sign Musculoskeletal: Pulses present and equal in all extremities, no peripheral edema Motor: no focal deficits noted Neurological: CN II-XII grossly intact, no focal motor or sensory deficits noted Skin: Intact with no visualized rashes Psych: Normal affect and mood ED course: 18-year-old female presents with chief complaint of nausea vomiting diarrhea. Vital signs upon arrival shows heart rate of 133, rest of vital signs within acceptable limits. Laboratory evaluation obtained. Patient is leukocytosis of 23.9. Leukocytosis is of unknown etiology and the patient not showing any localizing symptoms to suggest infection. Metabolic panel is unremarkable. Patient does have mild gap acidosis likely secondary to dehydration. Urinalysis is unremarkable. Given degree of leukocytosis imaging studies were pursued. A bladder ultrasound and abdomen CT pelvis is unremarkable. Patient given fluids and antiemetics with improvement of symptoms. Patient reevaluated found be stable medical condition. Patient tolerate by mouth. Patient clear for discharge. Patient told to follow-up with primary care physician upon discharge. Return parameters discussed. Repeat vital signs are improved. EKG interpretation: Ventricular rate [default value]. No VA prolongation, no QTC prolongation, no ST or T-wave changes noted. EKG compared to [default value] showing no changes. Overall, this EKG is unremarkable - Related Data Home Medications Medication Instructions Recorded Confirmed Aviane-28 1 tab PO DAILY 03/27/19 03/27/19 Previous Rx's Medication Instructions Recorded Ondansetron Odt [Zofran Odt] 4 mg PO Q8HR PRN #12 tab 03/27/19 Allergies Allergy/AdvReac Type Severity Reaction Status Date / Time amoxicillin Allergy Anaphylaxis Verified 03/27/19 19:16 morphine AdvReac Rash/Hives Verified 03/27/19 19:16 Review of Systems ROS Statement: Those systems with pertinent positive or pertinent negative responses have been documented in the HPI. ROS Other: All systems not noted in ROS Statement are negative. Past Medical History Past Medical History: Asthma Additional Past Medical History / Comment(s): pt reports hx of SVT History of Any Multi-Drug Resistant Organisms: None Reported Past Surgical History: Ablation, Cholecystectomy, Heart Catheterization Additional Past Surgical History / Comment(s): heart ablation 12/2015 d and c Past Psychological History: Anxiety Smoking Status: Current every day smoker Past Alcohol Use History: None Reported Past Drug Use History: None Reported General Exam Limitations: no limitations Course Vital Signs 03/27/19 03/27/19 18:38 20:28 Temperature 99.2 F 98.9 F Pulse Rate 133 H 111 H Respiratory 18 18 Rate Blood Pressure 105/69 O2 Sat by Pulse 97 99 Oximetry Medical Decision Making - Lab Data Result diagrams: 03/27/19 19:09 03/27/19 19:09 Lab Results 03/27/19 03/27/19 03/27/19 Range/Units 18:57 18:57 19:09 WBC 23.9 H (4.0-11.0) k/uL RBC 5.59 H (3.80-5.40) m/uL Hgb 14.5 (11.4-16.0) gm/dL Hct 45.3 (34.0-46.0) % MCV 81.0 (80.0-100.0) fL MCH 25.9 (25.0-35.0) pg MCHC 32.0 (31.0-37.0) g/dL RDW 15.7 H (11.5-15.5) % Plt Count 394 (150-450) k/uL Neutrophils % 93 % Lymphocytes % 4 % Monocytes % 3 % Eosinophils % 0 % Basophils % 0 % Neutrophils # 22.2 H (1.3-7.7) k/uL Lymphocytes # 0.9 L (1.0-4.8) k/uL Monocytes # 0.6 (0-1.0) k/uL Eosinophils # 0.1 (0-0.7) k/uL Basophils # 0.0 (0-0.2) k/uL Sodium (137-145) mmol/L Potassium (3.5-5.1) mmol/L Chloride (98-107) mmol/L Carbon Dioxide (22-30) mmol/L Anion Gap mmol/L BUN (7-17) mg/dL Creatinine (0.52-1.04) mg/dL Est GFR (CKD-EPI)AfAm (>60 ml/min/1.73 sqM) Est GFR (CKD-EPI)NonAf (>60 ml/min/1.73 sqM) Glucose (74-99) mg/dL Calcium (8.4-10.2) mg/dL Total Bilirubin (0.2-1.3) mg/dL AST (14-36) U/L ALT (9-52) U/L Alkaline Phosphatase (38-126) U/L Total Protein (6.3-8.2) g/dL Albumin (3.5-5.0) g/dL Urine Color Yellow Urine Appearance Cloudy H (Clear) Urine pH 6.0 (5.0-8.0) Ur Specific [place] 1.035 (1.001-1.035) Urine Protein Trace H (Negative) Urine Glucose (UA) Negative (Negative) Urine Ketones Negative (Negative) Urine Blood Small H (Negative) Urine Nitrite Negative (Negative) Urine Bilirubin Negative (Negative) Urine Urobilinogen <2.0 (<2.0) mg/dL Ur Leukocyte Esterase Negative (Negative) Urine RBC 7 H (0-5) /hpf Urine WBC 4 (0-5) /hpf Ur Squamous Epith Cells 13 H (0-4) /hpf Urine Mucus Few H (None) /hpf Urine HCG, Qual Not Detected (Not Detectd) 03/27/19 Range/Units 19:09 WBC (4.0-11.0) k/uL RBC (3.80-5.40) m/uL Hgb (11.4-16.0) gm/dL Hct (34.0-46.0) % MCV (80.0-100.0) fL MCH (25.0-35.0) pg MCHC (31.0-37.0) g/dL RDW (11.5-15.5) % Plt Count (150-450) k/uL Neutrophils % % Lymphocytes % % Monocytes % % Eosinophils % % Basophils % % Neutrophils # (1.3-7.7) k/uL Lymphocytes # (1.0-4.8) k/uL Monocytes # (0-1.0) k/uL Eosinophils # (0-0.7) k/uL Basophils # (0-0.2) k/uL Sodium 139 (137-145) mmol/L Potassium 4.3 (3.5-5.1) mmol/L Chloride 106 (98-107) mmol/L Carbon Dioxide 21 L (22-30) mmol/L Anion Gap 12 mmol/L BUN 13 (7-17) mg/dL Creatinine 0.53 (0.52-1.04) mg/dL Est GFR (CKD-EPI)AfAm >90 (>60 ml/min/1.73 sqM) Est GFR (CKD-EPI)NonAf >90 (>60 ml/min/1.73 sqM) Glucose 120 H (74-99) mg/dL Calcium 9.7 (8.4-10.2) mg/dL Total Bilirubin 0.7 (0.2-1.3) mg/dL AST 22 (14-36) U/L ALT 29 (9-52) U/L Alkaline Phosphatase 142 H (38-126) U/L Total Protein 7.5 (6.3-8.2) g/dL Albumin 4.6 (3.5-5.0) g/dL Urine Color Urine Appearance (Clear) Urine pH (5.0-8.0) Ur Specific [place] (1.001-1.035) Urine Protein (Negative) Urine Glucose (UA) (Negative) Urine Ketones (Negative) Urine Blood (Negative) Urine Nitrite (Negative) Urine Bilirubin (Negative) Urine Urobilinogen (<2.0) mg/dL Ur Leukocyte Esterase (Negative) Urine RBC (0-5) /hpf Urine WBC (0-5) /hpf Ur Squamous Epith Cells (0-4) /hpf Urine Mucus (None) /hpf Urine HCG, Qual (Not Detectd) Disposition Clinical Impression: Gastroenteritis Disposition: HOME SELF-CARE Condition: Good Instructions (If sedation given, give patient instructions): Acute Nausea and Vomiting (ED), Acute Diarrhea (ED) Prescriptions: Ondansetron Odt [Zofran Odt] 4 mg PO Q8HR PRN #12 tab PRN Reason: Nausea Is patient prescribed a controlled substance at d/c from ED?: No Referrals: Karen Bull MD [REFERRING] - 1-2 days Time of Disposition: 20:58
[2019-03-27 19:12] LABS: Appearance,Urine Cloudy (Clear); Bilirubin,Urine Negative (Negative); Blood,Urine Small (Negative); Color,Urine Yellow; Glucose,Urine (UA) Negative (Negative); Ketones,Urine Negative (Negative); Leukocyte Esterase,Urine Negative (Negative); Mucus,Urine Few /hpf; Nitrite,Urine Negative (Negative); Protein,Urine Trace (Negative); RBC,Urine 7 /hpf (0-5); Specific Gravity,Urine 1.035 (1.001-1.035); Squamous Epithelial Cell,Urine 13 /hpf (0-4); Urobilinogen,Urine <2.0 mg/dL (<2.0); WBC,Urine 4 /hpf (0-5)
[2019-03-27 19:19] LABS: Basophils % (A) 0 %; Eosinophils # (A) 0.1 k/uL (0-0.7); Eosinophils % (A) 0 %; HCT 45.3 % (34.0-46.0); HGB 14.5 gm/dL (11.4-16.0); Lymphocytes # (A) 0.9 k/uL (1.0-4.8); Lymphocytes % (A) 4 %; MCH 25.9 pg (25.0-35.0); Mean Platelet Volume 7.7; Monocytes # (A) 0.6 k/uL (0-1.0); Monocytes % (A) 3 %; Neutrophils # (A) 22.2 k/uL (1.3-7.7); Neutrophils % (A) 93 %; Platelet Count 394 k/uL (150-450); RBC 5.59 m/uL (3.80-5.40); RDW 15.7 % (11.5-15.5); WBC 23.9 k/uL (4.0-11.0)
[2019-03-27 19:27] LABS: ALT 29 U/L (9-52); AST 22 U/L (14-36); Albumin 4.6 g/dL (3.5-5.0); Alkaline Phosphatase 142 U/L (38-126); Anion Gap 12 mmol/L; Blood Urea Nitrogen 13 mg/dL (7-17); Calcium 9.7 mg/dL (8.4-10.2); Carbon Dioxide 21 mmol/L (22-30); Chloride 106 mmol/L (98-107); Glucose 120 mg/dL (74-99); Potassium 4.3 mmol/L (3.5-5.1); Sodium 139 mmol/L (137-145); Total Bilirubin 0.7 mg/dL (0.2-1.3); Total Protein 7.5 g/dL (6.3-8.2)
--- NOTE | 2019-03-27 20:20 | CT ---
EXAMINATION TYPE: CT abdomen pelvis w con DATE OF EXAM: 03/27/2019 HISTORY: Vomiting w/racing heart feeling. Pt. states they have hx of SVT. Hx of ablation, heart cath, cholecystectomy. Isovue 300/[address] ml[address] DLP: 933.6mGycm Automated Exposure Control for Dose Reduction was Utilized. CONTRAST: CT scan of the abdomen and pelvis is performed without oral but with IV Contrast, patient injected wi th 100 mL of Isovue 300. COMPARISON: CT abdomen and pelvis January 15, 2019 FINDINGS: LUNG BASES: No significant abnormality is appreciated. LIVER/GB: Cholecystectomy clips are present. PANCREAS: No significant abnormality is seen. SPLEEN: No significant abnormality is seen. ADRENALS: No significant abnormality is seen. KIDNEYS: No significant abnormality is seen. BOWEL: Evaluation bowel is suboptimal secondary to lack of enteric contrast. No suspicious small or l arge bowel dilatation. UTERUS/ADNEXA: Anteverted uterus is present in both ovaries are seen, right slightly larger than left with roughly 2.0 cm prominent follicle or simple small ovarian cysts suspected. LYMPH NODES: No greater than 1cm abdominal or pelvic lymph nodes are appreciated. OSSEOUS STRUCTURES: Transitional-type vertebra at lumbosacral junction is redemonstrated. OTHER: Surgical clip anterior right upper pelvis axial image 68 is redemonstrated. IMPRESSION: No bowel obstruction. No significant new or acute finding is seen to account for patient' s clinical symptoms.
[2019-03-27 20:28] VITALS: PULSE 111; TEMP 98.9
--- NOTE | 2019-03-27 20:28 | US ---
EXAMINATION TYPE: US gallbladder DATE OF EXAM: 03/27/2019 COMPARISON: CT abdomen pelvis earlier today CLINICAL HISTORY: Pain. Chest pain. Hx of GB removal x 6 years ago. EXAM MEASUREMENTS: Liver Length: 15.2 cm CBD: 0.3 cm CHD: 0.2 cm Right Kidney: 10.0 x 4.7 x 4.8 cm Pancreas: body and tail obscured by bowel gas Liver: wnl Gallbladder: Surgically absent Evidence for sonographic Mitchell's sign: neg CBD: wnl CHD: wnl Right Kidney: wnl Visualized pancreas shows no mass or ductal dilatation. Portions are secured by overlying bowel gas o n ultrasound but appeared within normal limits on recent CT. No suspicious intrahepatic or hepatic bi liary dilatation. IMPRESSION: No acute finding evident to account for patient's symptoms.
== END 2019-03-27 21:19 | disposition home or self-care (01) ==
LOC: EC 18:37
DX: K52.9 Noninfective gastroenteritis and colitis, unspecified (principal); D72.829 Elevated white blood cell count, unspecified; F17.200 Nicotine dependence, unspecified, uncomplicated; Z79.3 Long term (current) use of hormonal contraceptives; Z88.0 Allergy status to penicillin; Z88.5 Allergy status to narcotic agent
CPT/HCPCS: 36415; 80053; 85025; 81001; 81025; 87086; 76705; 74177; 99284; 96374; 96361; J2405; Q9967

== ENCOUNTER 2019-04-17 01:09 | Emergency (ER) | payer OTHER ==
[2019-04-17] MEDS ORDERED: SODIUM CHLORIDE 0.9% 1,000 ML IV ONE (01:55)
[2019-04-17] MEDS ORDERED: ACETAMINOPHEN TAB 500 MG TAB PO STA (01:55)
[2019-04-17 02:06] LABS: Appearance,Urine Cloudy (Clear); Bilirubin,Urine Negative (Negative); Blood,Urine Large (Negative); Color,Urine Dark Brown; Glucose,Urine (UA) Negative (Negative); Ketones,Urine Trace (Negative); Leukocyte Esterase,Urine Moderate (Negative); Mucus,Urine Many /hpf; Nitrite,Urine Negative (Negative); Protein,Urine 1+ (Negative); RBC,Urine >182 /hpf (0-5); Urobilinogen,Urine >12.0 mg/dL (<2.0); WBC,Urine 29 /hpf (0-5)
[2019-04-17 02:20] LABS: Basophils % (A) 0 %; Eosinophils # (A) 0.3 k/uL (0-0.7); Eosinophils % (A) 3 %; HCT 41.5 % (34.0-46.0); HGB 13.5 gm/dL (11.4-16.0); Lymphocytes # (A) 2.7 k/uL (1.0-4.8); Lymphocytes % (A) 26 %; MCHC 32.5 g/dL (31.0-37.0); MCV 79.8 fL (80.0-100.0); Mean Platelet Volume 7.2; Monocytes # (A) 0.8 k/uL (0-1.0); Monocytes % (A) 8 %; Neutrophils # (A) 6.4 k/uL (1.3-7.7); Neutrophils % (A) 62 %; Platelet Count 325 k/uL (150-450); RDW 15.9 % (11.5-15.5); WBC 10.4 k/uL (4.0-11.0)
[2019-04-17 02:28] LABS: ALT 23 U/L (9-52); AST 26 U/L (14-36); Albumin 4.5 g/dL (3.5-5.0); Alkaline Phosphatase 134 U/L (38-126); Anion Gap 9 mmol/L; Blood Urea Nitrogen 8 mg/dL (7-17); Calcium 9.9 mg/dL (8.4-10.2); Carbon Dioxide 24 mmol/L (22-30); Chloride 108 mmol/L (98-107); Glucose 88 mg/dL (74-99); INR 0.9 (<1.2); Partial Thromboplastin Time 26.1 sec (22.0-30.0); Potassium 4.3 mmol/L (3.5-5.1); Prothrombin Time 9.9 sec (9.0-12.0); Sodium 141 mmol/L (137-145); Total Bilirubin 0.5 mg/dL (0.2-1.3); Total Protein 7.6 g/dL (6.3-8.2)
[2019-04-17 02:46] LABS: HCG,Quantitative Serum <2.4 mIU/mL
--- NOTE | 2019-04-17 02:51 | ED ---
Female Urogenital HPI - General Chief complaint: Vaginal Bleeding Stated complaint: Vaginal Bleeding Time Seen by Provider: 04/17/19 01:42 Source: patient Mode of arrival: ambulatory Limitations: no limitations - History of Present Illness Initial comments: 18-year-old female patient presents to the emergency department today for evaluation of heavy vaginal bleeding and passage of clots. Patient states she started having vaginal bleeding yesterday. Patient states that she is passing golf ball size clots. Patient states she is having to change her pad every hour today. Patient states she is having some suprapubic abdominal cramping with this. Denies any low back pain. She denies any dizziness or weakness. Patient states her last period was about 9 weeks ago. States that she did switch controls from the nexplanon implant to oral control and has been having irregular periods as a result. Patient states she did take a home test which was negative however states with her last she never had a positive urine test and required blood work. She denies any nausea or vomiting. Denies any breast tenderness. Denies any fever or chills. Patient denies any recent rash, shortness breath, chest pain, diarrhea, constipation, back pain, numbness, tingling, dizziness, weakness, hematuria, dysuria, urinary urgency, urinary frequency, headache, visual changes, or any other complaints. - Related Data Home Medications Medication Instructions Recorded Confirmed Aviane-28 1 tab PO DAILY 03/27/19 03/27/19 Previous Rx's Medication Instructions Recorded Ondansetron Odt [Zofran Odt] 4 mg PO Q8HR PRN #12 tab 03/27/19 Allergies Allergy/AdvReac Type Severity Reaction Status Date / Time amoxicillin Allergy Anaphylaxis Verified 04/17/19 01:39 morphine AdvReac Rash/Hives Verified 04/17/19 01:39 Review of Systems ROS Statement: Those systems with pertinent positive or pertinent negative responses have been documented in the HPI. ROS Other: All systems not noted in ROS Statement are negative. Past Medical History Past Medical History: Asthma Additional Past Medical History / Comment(s): pt reports hx of SVT History of Any Multi-Drug Resistant Organisms: None Reported Past Surgical History: Ablation, Cholecystectomy, Heart Catheterization Additional Past Surgical History / Comment(s): heart ablation 12/2015 d and c Past Psychological History: Anxiety Smoking Status: Current every day smoker Past Alcohol Use History: None Reported Past Drug Use History: None Reported General Exam Limitations: no limitations General appearance: alert, in no apparent distress, other (Physical well- developed, well-nourished adult female patient in no acute distress. Vital signs upon presentation are temperature 98.4F, pulse 95, respirations 20, blood pressure 107/74, pulse ox 98% on room air.) Eye exam: Present: normal appearance, PERRL, EOMI. Absent: scleral icterus, conjunctival injection, periorbital swelling ENT exam: Present: normal exam, normal oropharynx, mucous membranes moist Respiratory exam: Present: normal lung sounds bilaterally. Absent: respiratory distress, wheezes, rales, rhonchi, stridor Cardiovascular Exam: Present: regular rate, normal rhythm, normal heart sounds. Absent: systolic murmur, diastolic murmur, rubs, gallop, clicks GI/Abdominal exam: Present: soft, normal bowel sounds. Absent: distended, tenderness, guarding, rebound, rigid External exam: Present: normal external exam Speculum exam: Present: vaginal bleeding (mild dark red vaginal bleeding, no clots noted at this time.), other (Cervical os closed.). Absent: normal speculum exam By manual exam: Present: normal by manual exam Neurological exam: Present: alert, oriented X3, CN II-XII intact Psychiatric exam: Present: normal affect, normal mood Skin exam: Present: warm, dry, intact, normal color. Absent: rash Course Vital Signs 04/17/19 04/17/19 01:37 03:05 Temperature 98.4 F 97.8 F Pulse Rate 95 77 Respiratory 20 16 Rate Blood Pressure 107/74 132/74 O2 Sat by Pulse 98 98 Oximetry Medical Decision Making - Medical Decision Making 18-year-old female patient presented to the emergency department today for evaluation of heavy vaginal bleeding with passage of clots. Labs reviewed and are unremarkable. Patient's serum hCG was negative. Did discuss findings and results with the patient. Vital signs have remained stable. We did discuss that her bleeding is mostly related to menstruation. She is instructed to follow-up with her computer trainer for further evaluation as soon as possible. Return parameters were discussed in detail. She verbalizes understanding and agrees with this plan. - Lab Data Result diagrams: 04/17/19 02:05 04/17/19 02:05 Lab Results 04/17/19 04/17/19 04/17/19 Range/Units 01:48 01:48 02:05 WBC 10.4 (4.0-11.0) k/uL RBC 5.20 (3.80-5.40) m/uL Hgb 13.5 (11.4-16.0) gm/dL Hct 41.5 (34.0-46.0) % MCV 79.8 L (80.0-100.0) fL MCH 26.0 (25.0-35.0) pg MCHC 32.5 (31.0-37.0) g/dL RDW 15.9 H (11.5-15.5) % Plt Count 325 (150-450) k/uL Neutrophils % 62 % Lymphocytes % 26 % Monocytes % 8 % Eosinophils % 3 % Basophils % 0 % Neutrophils # 6.4 (1.3-7.7) k/uL Lymphocytes # 2.7 (1.0-4.8) k/uL Monocytes # 0.8 (0-1.0) k/uL Eosinophils # 0.3 (0-0.7) k/uL Basophils # 0.0 (0-0.2) k/uL PT (9.0-12.0) sec INR (<1.2) APTT (22.0-30.0) sec Sodium (137-145) mmol/L Potassium (3.5-5.1) mmol/L Chloride (98-107) mmol/L Carbon Dioxide (22-30) mmol/L Anion Gap mmol/L BUN (7-17) mg/dL Creatinine (0.52-1.04) mg/dL Est GFR (CKD-EPI)AfAm (>60 ml/min/1.73 sqM) Est GFR (CKD-EPI)NonAf (>60 ml/min/1.73 sqM) Glucose (74-99) mg/dL Calcium (8.4-10.2) mg/dL Total Bilirubin (0.2-1.3) mg/dL AST (14-36) U/L ALT (9-52) U/L Alkaline Phosphatase (38-126) U/L Total Protein (6.3-8.2) g/dL Albumin (3.5-5.0) g/dL HCG, Quant mIU/mL Urine Color Dark Brown Urine Appearance Cloudy H (Clear) Urine pH 6.0 (5.0-8.0) Ur Specific [place] 1.030 (1.001-1.035) Urine Protein 1+ H (Negative) Urine Glucose (UA) Negative (Negative) Urine Ketones Trace H (Negative) Urine Blood Large H (Negative) Urine Nitrite Negative (Negative) Urine Bilirubin Negative (Negative) Urine Urobilinogen >12.0 (<2.0) mg/dL Ur Leukocyte Esterase Moderate H (Negative) Urine RBC >182 H (0-5) /hpf Urine WBC 29 H (0-5) /hpf Urine Mucus Many H (None) /hpf Urine HCG, Qual Not Detected (Not Detectd) 04/17/19 04/17/19 Range/Units 02:05 02:05 WBC (4.0-11.0) k/uL RBC (3.80-5.40) m/uL Hgb (11.4-16.0) gm/dL Hct (34.0-46.0) % MCV (80.0-100.0) fL MCH (25.0-35.0) pg MCHC (31.0-37.0) g/dL RDW (11.5-15.5) % Plt Count (150-450) k/uL Neutrophils % % Lymphocytes % % Monocytes % % Eosinophils % % Basophils % % Neutrophils # (1.3-7.7) k/uL Lymphocytes # (1.0-4.8) k/uL Monocytes # (0-1.0) k/uL Eosinophils # (0-0.7) k/uL Basophils # (0-0.2) k/uL PT 9.9 (9.0-12.0) sec INR 0.9 (<1.2) APTT 26.1 (22.0-30.0) sec Sodium 141 (137-145) mmol/L Potassium 4.3 (3.5-5.1) mmol/L Chloride 108 H (98-107) mmol/L Carbon Dioxide 24 (22-30) mmol/L Anion Gap 9 mmol/L BUN 8 (7-17) mg/dL Creatinine 0.54 (0.52-1.04) mg/dL Est GFR (CKD-EPI)AfAm >90 (>60 ml/min/1.73 sqM) Est GFR (CKD-EPI)NonAf >90 (>60 ml/min/1.73 sqM) Glucose 88 (74-99) mg/dL Calcium 9.9 (8.4-10.2) mg/dL Total Bilirubin 0.5 (0.2-1.3) mg/dL AST 26 (14-36) U/L ALT 23 (9-52) U/L Alkaline Phosphatase 134 H (38-126) U/L Total Protein 7.6 (6.3-8.2) g/dL Albumin 4.5 (3.5-5.0) g/dL HCG, Quant <2.4 mIU/mL Urine Color Urine Appearance (Clear) Urine pH (5.0-8.0) Ur Specific [place] (1.001-1.035) Urine Protein (Negative) Urine Glucose (UA) (Negative) Urine Ketones (Negative) Urine Blood (Negative) Urine Nitrite (Negative) Urine Bilirubin (Negative) Urine Urobilinogen (<2.0) mg/dL Ur Leukocyte Esterase (Negative) Urine RBC (0-5) /hpf Urine WBC (0-5) /hpf Urine Mucus (None) /hpf Urine HCG, Qual (Not Detectd) Disposition Clinical Impression: Dysfunctional uterine bleeding Disposition: HOME SELF-CARE Condition: Good Instructions (If sedation given, give patient instructions): Dysfunctional Uterine Bleeding (ED) Additional Instructions: Follow up with gynecology for further evaluation as soon as possible. Follow-up with your primary care physician for recheck in 1-2 days. Return to the emergency department immediately for any new, worsening, or concerning symptoms. Is patient prescribed a controlled substance at d/c from ED?: No Referrals: None,Stated [Primary Care Provider] - 1-2 days Time of Disposition: 02:51
[2019-04-17 03:06] VITALS: BP 132/74; PULSE 77; RESP 16; TEMP 97.8
== END 2019-04-17 03:06 | disposition home or self-care (01) ==
LOC: EC 01:09
DX: N93.8 Other specified abnormal uterine and vaginal bleeding (principal); Z32.02 Encounter for pregnancy test, result negative; F17.200 Nicotine dependence, unspecified, uncomplicated; Z79.3 Long term (current) use of hormonal contraceptives; Z88.0 Allergy status to penicillin; Z88.5 Allergy status to narcotic agent; Z90.49 Acquired absence of other specified parts of digestive tract
CPT/HCPCS: 36415; 80053; 81001; 81025; 84702; 85025; 85610; 85730; 96360; 99284

== ENCOUNTER 2019-05-15 00:40 | Emergency (ER) | payer OTHER ==
[2019-05-15 00:46] VITALS: TEMP 98.7
[2019-05-15] MEDS ORDERED: SODIUM CHLORIDE 0.9% 1,000 ML IV STA (01:30)
[2019-05-15] MEDS ORDERED: KETOROLAC 30 MG/ML 1 ML VIAL IVP STA (01:30)
--- NOTE | 2019-05-15 01:34 | ED ---
General Adult HPI - General Chief complaint: Chest Pain Stated complaint: Chest Pain Time Seen by Provider: 05/15/19 00:52 Source: patient Mode of arrival: ambulatory Limitations: no limitations - History of Present Illness Initial comments: 18-year-old female patient with past medical history significant for SVT presents to the emergency department today for complaints of substernal chest pain. Patient describes the pain is sharp in nature and radiating through to her back. States that the pain is constant, nothing makes the pain better, nothing makes pain worse. States that she is short of breath and nauseated with this. Patient states this started approximately an hour and a half ago waking her from sleep. Patient states at the time she did have racing heart and felt like her previous episodes of SVT. Patient states she has underwent ablation in the past and is not currently taking any medications for this. She denies any abdominal pain, nausea, or vomiting. Denies any chance of . Denies any use of caffeine or stimulants. Denies any street drug or alcohol use. Patient denies any recent rash, fever, chills, abdominal pain, diarrhea, constipation, back pain, numbness, tingling, dizziness, weakness, hematuria, dysuria, urinary urgency, urinary frequency, headache, visual changes, or any other complaints. - Related Data Home Medications Medication Instructions Recorded Confirmed Aviane-28 1 tab PO DAILY 03/27/19 03/27/19 Previous Rx's Medication Instructions Recorded Ondansetron Odt [Zofran Odt] 4 mg PO Q8HR PRN #12 tab 03/27/19 Allergies Allergy/AdvReac Type Severity Reaction Status Date / Time amoxicillin Allergy Anaphylaxis Verified 05/15/19 00:46 morphine AdvReac Rash/Hives Verified 05/15/19 00:46 Review of Systems ROS Statement: Those systems with pertinent positive or pertinent negative responses have been documented in the HPI. ROS Other: All systems not noted in ROS Statement are negative. Past Medical History Past Medical History: Asthma Additional Past Medical History / Comment(s): pt reports hx of SVT History of Any Multi-Drug Resistant Organisms: None Reported Past Surgical History: Ablation, Cholecystectomy, Heart Catheterization Additional Past Surgical History / Comment(s): heart ablation 12/2015 d and c Past Psychological History: Anxiety Smoking Status: Current every day smoker Past Alcohol Use History: None Reported Past Drug Use History: None Reported General Exam Limitations: no limitations General appearance: alert, in no apparent distress, other (This is a well- developed, well-nourished adult female patient in no acute distress. Vital signs upon presentation are temperature 98.7F, pulse 102, respirations 20, blood pressure 115/73, pulse ox 99% on room air.) Eye exam: Present: normal appearance, PERRL, EOMI. Absent: scleral icterus, conjunctival injection, periorbital swelling ENT exam: Present: normal exam, normal oropharynx, mucous membranes moist Respiratory exam: Present: normal lung sounds bilaterally. Absent: respiratory distress, wheezes, rales, rhonchi, stridor Cardiovascular Exam: Present: regular rate, normal rhythm, normal heart sounds. Absent: systolic murmur, diastolic murmur, rubs, gallop, clicks GI/Abdominal exam: Present: soft, normal bowel sounds. Absent: distended, tenderness, guarding, rebound, rigid Neurological exam: Present: alert, oriented X3, CN II-XII intact Psychiatric exam: Present: normal affect, normal mood Skin exam: Present: warm, dry, intact, normal color. Absent: rash Course Vital Signs 05/15/19 00:42 Temperature 98.7 F Pulse Rate 102 H Respiratory 20 Rate Blood Pressure 115/73 O2 Sat by Pulse 99 Oximetry EKG Findings - EKG Comments: EKG Findings:: EKG obtained at 00 56 shows normal sinus rhythm with a ventricular rate of 98, MD interval 130, QRS duration 90, QT 360, QTC 459. No evidence of ST elevation or depression. Medical Decision Making - Medical Decision Making 18-year-old female patient presents to the emergency department today for evaluation of chest pain and palpitations. Physical examination was unremarkable. Lungs are clear to auscultation with good air movement. EKG showed normal sinus rhythm. Labs reviewed and were unremarkable. Upon reevaluation patient does report improvement of symptoms. Patient has a ca rdiologist in [place], she is supposed to follow-up to have her monitor placed. She is instructed to call in the morning to obtain an appointment. She is instructed to follow-up with her primary care physician for recheck in 1-2 days. Return parameters were discussed in detail. She verbalizes understanding and agrees with this plan. - Lab Data Result diagrams: 05/15/19 01:50 05/15/19 01:50 Lab Results 05/15/19 05/15/19 05/15/19 Range/Units 01:50 01:50 01:50 WBC 14.3 H (4.0-11.0) k/uL RBC 5.41 H (3.80-5.40) m/uL Hgb 14.0 (11.4-16.0) gm/dL Hct 44.1 (34.0-46.0) % MCV 81.5 (80.0-100.0) fL MCH 25.8 (25.0-35.0) pg MCHC 31.7 (31.0-37.0) g/dL RDW 16.0 H (11.5-15.5) % Plt Count 357 (150-450) k/uL Neutrophils % 69 % Lymphocytes % 24 % Monocytes % 5 % Eosinophils % 2 % Basophils % 0 % Neutrophils # 9.8 H (1.3-7.7) k/uL Lymphocytes # 3.3 (1.0-4.8) k/uL Monocytes # 0.7 (0-1.0) k/uL Eosinophils # 0.2 (0-0.7) k/uL Basophils # 0.1 (0-0.2) k/uL PT 9.5 (9.0-12.0) sec INR 0.9 (<1.2) APTT 25.0 (22.0-30.0) sec D-Dimer <0.17 (<0.60) mg/L FEU Sodium 142 (137-145) mmol/L Potassium 4.3 (3.5-5.1) mmol/L Chloride 107 (98-107) mmol/L Carbon Dioxide 25 (22-30) mmol/L Anion Gap 10 mmol/L BUN 9 (7-17) mg/dL Creatinine 0.75 (0.52-1.04) mg/dL Est GFR (CKD-EPI)AfAm >90 (>60 ml/min/1.73 sqM) Est GFR (CKD-EPI)NonAf >90 (>60 ml/min/1.73 sqM) Glucose 101 H (74-99) mg/dL Calcium 9.9 (8.4-10.2) mg/dL Magnesium 2.0 (1.6-2.3) mg/dL Total Bilirubin 0.2 (0.2-1.3) mg/dL AST 23 (14-36) U/L ALT 28 (9-52) U/L Alkaline Phosphatase 134 H (38-126) U/L Troponin I (0.000-0.034) ng/mL Total Protein 7.4 (6.3-8.2) g/dL Albumin 4.5 (3.5-5.0) g/dL TSH 2.540 (0.465-4.680) mIU/L Urine HCG, Qual (Not Detectd) 05/15/19 05/15/19 Range/Units 01:50 01:50 WBC (4.0-11.0) k/uL RBC (3.80-5.40) m/uL Hgb (11.4-16.0) gm/dL Hct (34.0-46.0) % MCV (80.0-100.0) fL MCH (25.0-35.0) pg MCHC (31.0-37.0) g/dL RDW (11.5-15.5) % Plt Count (150-450) k/uL Neutrophils % % Lymphocytes % % Monocytes % % Eosinophils % % Basophils % % Neutrophils # (1.3-7.7) k/uL Lymphocytes # (1.0-4.8) k/uL Monocytes # (0-1.0) k/uL Eosinophils # (0-0.7) k/uL Basophils # (0-0.2) k/uL PT (9.0-12.0) sec INR (<1.2) APTT (22.0-30.0) sec D-Dimer (<0.60) mg/L FEU Sodium (137-145) mmol/L Potassium (3.5-5.1) mmol/L Chloride (98-107) mmol/L Carbon Dioxide (22-30) mmol/L Anion Gap mmol/L BUN (7-17) mg/dL Creatinine (0.52-1.04) mg/dL Est GFR (CKD-EPI)AfAm (>60 ml/min/1.73 sqM) Est GFR (CKD-EPI)NonAf (>60 ml/min/1.73 sqM) Glucose (74-99) mg/dL Calcium (8.4-10.2) mg/dL Magnesium (1.6-2.3) mg/dL Total Bilirubin (0.2-1.3) mg/dL AST (14-36) U/L ALT (9-52) U/L Alkaline Phosphatase (38-126) U/L Troponin I <0.012 (0.000-0.034) ng/mL Total Protein (6.3-8.2) g/dL Albumin (3.5-5.0) g/dL TSH (0.465-4.680) mIU/L Urine HCG, Qual Not Detected (Not Detectd) Disposition Clinical Impression: Chest pain, Palpitations Disposition: HOME SELF-CARE Condition: Good Instructions (If sedation given, give patient instructions): Chest Pain (ED), Heart Palpitations (ED) Additional Instructions: Follow-up with your instrumentation and controls designer for recheck as soon as possible. Return to the emergency department immediately for any new, worsening, or concerning symptoms. Is patient prescribed a controlled substance at d/c from ED?: No Referrals: None,Stated [Primary Care Provider] - 1-2 days Time of Disposition: 03:24
[2019-05-15 02:15] LABS: Basophils # (A) 0.1 k/uL (0-0.2); Basophils % (A) 0 %; Eosinophils # (A) 0.2 k/uL (0-0.7); Eosinophils % (A) 2 %; HCT 44.1 % (34.0-46.0); Lymphocytes # (A) 3.3 k/uL (1.0-4.8); Lymphocytes % (A) 24 %; MCH 25.8 pg (25.0-35.0); MCHC 31.7 g/dL (31.0-37.0); MCV 81.5 fL (80.0-100.0); Mean Platelet Volume 7.8; Monocytes # (A) 0.7 k/uL (0-1.0); Monocytes % (A) 5 %; Neutrophils # (A) 9.8 k/uL (1.3-7.7); Neutrophils % (A) 69 %; Platelet Count 357 k/uL (150-450); RBC 5.41 m/uL (3.80-5.40); WBC 14.3 k/uL (4.0-11.0)
[2019-05-15 02:16] LABS: ALT 28 U/L (9-52); AST 23 U/L (14-36); African American GFR (CKD) >90 (>60 ml/min/1.73 sqM); Albumin 4.5 g/dL (3.5-5.0); Alkaline Phosphatase 134 U/L (38-126); Anion Gap 10 mmol/L; Blood Urea Nitrogen 9 mg/dL (7-17); Calcium 9.9 mg/dL (8.4-10.2); Carbon Dioxide 25 mmol/L (22-30); Chloride 107 mmol/L (98-107); Glucose 101 mg/dL (74-99); Potassium 4.3 mmol/L (3.5-5.1); Sodium 142 mmol/L (137-145); Total Bilirubin 0.2 mg/dL (0.2-1.3); Total Protein 7.4 g/dL (6.3-8.2)
[2019-05-15 02:26] LABS: D-Dimer <0.17 mg/L FEU (<0.60); INR 0.9 (<1.2); Prothrombin Time 9.5 sec (9.0-12.0)
--- NOTE | 2019-05-15 02:36 | XR ---
EXAM: XR Chest, 2 Views CLINICAL HISTORY: ITS.REASON XR Reason: Chest Pain TECHNIQUE: Frontal and lateral views of the chest. COMPARISON: Chest radiograph on 11/23/2018 FINDINGS: Hardware: None. Lungs/pleura: Normal. No focal consolidation. No pleural effusion or pneumothorax. Heart/mediastinum: Normal. No cardiomegaly. Soft tissues: Unremarkable. Bones: No acute fracture. Upper abdomen: Cholecystectomy clips in the right upper quadrant. IMPRESSION: No acute disease identified.
[2019-05-15 03:49] VITALS: BP 118/80; PULSE 92; RESP 16
== END 2019-05-15 03:49 | disposition home or self-care (01) ==
LOC: EC 00:40
DX: R07.9 Chest pain, unspecified (principal); R00.2 Palpitations; R06.02 Shortness of breath; R11.0 Nausea; F17.200 Nicotine dependence, unspecified, uncomplicated; Z79.3 Long term (current) use of hormonal contraceptives; Z88.0 Allergy status to penicillin; Z88.5 Allergy status to narcotic agent; Z95.5 Presence of coronary angioplasty implant and graft; Z90.49 Acquired absence of other specified parts of digestive tract
CPT/HCPCS: 36415; 93005; 85379; 80053; 84443; 83735; 84484; 85025; 85610; 85730; 81025; 71046; 99285; 96374; 96361 ×2; J1885

== ENCOUNTER 2019-10-10 01:17 | Emergency (ER) | payer OTHER ==
[2019-10-10 01:25] VITALS: BP 116/75; PULSE 97; RESP 17; TEMP 98
[2019-10-10 02:18] LABS: Appearance,Urine Cloudy (Clear); Bacteria,Urine Rare /hpf; Bilirubin,Urine Negative (Negative); Blood,Urine Negative (Negative); Color,Urine Yellow; Glucose,Urine (UA) Negative (Negative); Ketones,Urine Negative (Negative); Leukocyte Esterase,Urine Small (Negative); Mucus,Urine Few /hpf; Nitrite,Urine Negative (Negative); Protein,Urine Trace (Negative); RBC,Urine 3 /hpf (0-5); Specific Gravity,Urine 1.026 (1.001-1.035); Squamous Epithelial Cell,Urine 15 /hpf (0-4); WBC,Urine 17 /hpf (0-5)
--- NOTE | 2019-10-10 02:22 | ED ---
Nausea/Vomiting/Diarrhea HPI - General Chief complaint: Nausea/Vomiting/Diarrhea Stated complaint: Nausea Time Seen by Provider: 10/10/19 01:28 Source: patient Mode of arrival: ambulatory Limitations: no limitations - History of Present Illness Initial comments: 19-year-old female patient presents to the emergency department today requesting test. Patient states last 5 days she has had episodes of nausea lasting approximately 20 minutes each evening. Patient states she is 2 weeks late on her period. She states she is having some vague upper abdominal cramping. Denies any constipation or diarrhea. Denies fever or chills. Denies any hematuria, dysuria, urinary frequency, urinary urgency. Denies any abnormal vaginal discharge. - Related Data Home Medications Medication Instructions Recorded Confirmed Aviane-28 1 tab PO DAILY 03/27/19 03/27/19 Previous Rx's Medication Instructions Recorded Ondansetron Odt [Zofran Odt] 4 mg PO Q8HR PRN #12 tab 03/27/19 Allergies Allergy/AdvReac Type Severity Reaction Status Date / Time amoxicillin Allergy Anaphylaxis Verified 10/10/19 01:25 morphine AdvReac Rash/Hives Verified 10/10/19 01:25 Review of Systems ROS Statement: Those systems with pertinent positive or pertinent negative responses have been documented in the HPI. ROS Other: All systems not noted in ROS Statement are negative. Past Medical History Past Medical History: Asthma Additional Past Medical History / Comment(s): pt reports hx of SVT History of Any Multi-Drug Resistant Organisms: None Reported Past Surgical History: Ablation, Cholecystectomy, Heart Catheterization Additional Past Surgical History / Comment(s): heart ablation 12/2015 d and c Past Psychological History: Anxiety Smoking Status: Current every day smoker Past Alcohol Use History: None Reported Past Drug Use History: None Reported General Exam Limitations: no limitations General appearance: alert, in no apparent distress, other (This is a well- developed, well-nourished adult female patient in no acute distress. Vital signs upon presentation are temperature 98.0F, pulse 97, respirations 17, blood pressure 116/75, pulse ox 99) Eye exam: Present: normal appearance, PERRL, EOMI. Absent: scleral icterus, conjunctival injection, periorbital swelling ENT exam: Present: normal exam, normal oropharynx, mucous membranes moist Respiratory exam: Present: normal lung sounds bilaterally. Absent: respiratory distress, wheezes, rales, rhonchi, stridor Cardiovascular Exam: Present: regular rate, normal rhythm, normal heart sounds. Absent: systolic murmur, diastolic murmur, rubs, gallop, clicks GI/Abdominal exam: Present: soft, normal bowel sounds. Absent: distended, tenderness, guarding, rebound, rigid Neurological exam: Present: alert, oriented X3, CN II-XII intact Psychiatric exam: Present: normal affect, normal mood Skin exam: Present: warm, dry, intact, normal color. Absent: rash Course Vital Signs 10/10/19 01:22 Temperature 98.0 F Pulse Rate 97 Respiratory 17 Rate Blood Pressure 116/75 O2 Sat by Pulse 99 Oximetry Medical Decision Making - Medical Decision Making 19-year-old female patient presents into the emergency department today requesting test. Physical examination is unremarkable. Abdomen soft and nontender. Vital signs satisfactory. test was negative. Urinalysis did show some white blood cells and bacteria, this was sent for culture. She is instructed to follow-up with her primary care physician for recheck in 1-2 days. Return parameters discussed in detail. She verbalizes understanding and agrees with this plan. - Lab Data Lab Results 10/10/19 10/10/19 Range/Units 01:40 01:40 Urine Color Yellow Urine Appearance Cloudy H (Clear) Urine pH 6.0 (5.0-8.0) Ur Specific [place] 1.026 (1.001-1.035) Urine Protein Trace H (Negative) Urine Glucose (UA) Negative (Negative) Urine Ketones Negative (Negative) Urine Blood Negative (Negative) Urine Nitrite Negative (Negative) Urine Bilirubin Negative (Negative) Urine Urobilinogen 3.0 (<2.0) mg/dL Ur Leukocyte Esterase Small H (Negative) Urine RBC 3 (0-5) /hpf Urine WBC 17 H (0-5) /hpf Ur Squamous Epith Cells 15 H (0-4) /hpf Urine Bacteria Rare H (None) /hpf Urine Mucus Few H (None) /hpf Urine HCG, Qual Not Detected (Not Detectd) Disposition Clinical Impression: Vomiting Disposition: HOME SELF-CARE Condition: Good Instructions (If sedation given, give patient instructions): Acute Nausea and Vomiting (ED) Additional Instructions: Follow-up with your primary care physician for recheck in 1-2 days. Wait one week and recheck a test. Return to the emergency department immediately for any new, worsening, or concerning symptoms. Is patient prescribed a controlled substance at d/c from ED?: No Referrals: None,Stated [Primary Care Provider] - 1-2 days Time of Disposition: 02:22
== END 2019-10-10 02:35 | disposition home or self-care (01) ==
LOC: EC 01:17
DX: R11.2 Nausea with vomiting, unspecified (principal); Z32.02 Encounter for pregnancy test, result negative; R82.71 Bacteriuria; R82.998 Other abnormal findings in urine; R10.10 Upper abdominal pain, unspecified; F17.200 Nicotine dependence, unspecified, uncomplicated; Z88.0 Allergy status to penicillin; Z88.5 Allergy status to narcotic agent; Z79.3 Long term (current) use of hormonal contraceptives; Z90.49 Acquired absence of other specified parts of digestive tract
CPT/HCPCS: 81001; 81025; 99284

== ENCOUNTER 2019-12-16 08:57 | Emergency (ER) | payer OTHER ==
[2019-12-16] MEDS ORDERED: SODIUM CHLORIDE 0.9% 1,000 ML IV ONE (09:03)
[2019-12-16 09:35] LABS: Appearance,Urine Clear (Clear); Bilirubin,Urine Negative (Negative); Blood,Urine Negative (Negative); Color,Urine Light Yellow; Glucose,Urine (UA) Negative (Negative); Ketones,Urine Negative (Negative); Leukocyte Esterase,Urine Negative (Negative); Nitrite,Urine Negative (Negative); PH, Urine 5.5 (5.0-8.0); Protein,Urine Negative (Negative); Specific Gravity,Urine 1.002 (1.001-1.035); Urobilinogen,Urine <2.0 mg/dL (<2.0)
--- NOTE | 2019-12-16 09:45 | ED ---
Abdominal Pain HPI - General Chief Complaint: Abdominal Pain Stated Complaint: abd pain, vomiting Source: patient Mode of arrival: ambulatory Limitations: no limitations - History of Present Illness Initial Comments: 19-year-old female with history of SVT presents today for chief complaint of abdominal pain 2 days. Patient states she has had mid to lower right sided abdominal pain on for the past 2-3 days. No radiation. Patient states she feels as though she has had a fever. Patient states the pain awoke her this morning at 3 AM and has been more consistent with the previous 2 days. Patient admits to nausea and loose stools. Patient states she has had "a few" episodes of vomiting. Denies any consistent vomiting, denies blood in stools, recent travel. Patient denies any back pain denies denies vaginal discharge dysuria or urgency frequency. Patient denies any other complaints at this time upon arrival appears nontoxic no signs of acute distress. - Related Data Home Medications Medication Instructions Recorded Confirmed Aviane-28 1 tab PO DAILY 03/27/19 03/27/19 Previous Rx's Medication Instructions Recorded Ondansetron Odt [Zofran Odt] 4 mg PO Q8HR PRN #12 tab 03/27/19 Allergies Allergy/AdvReac Type Severity Reaction Status Date / Time amoxicillin Allergy Anaphylaxis Verified 12/16/19 08:58 morphine AdvReac Rash/Hives Verified 12/16/19 08:58 Review of Systems ROS Statement: Those systems with pertinent positive or pertinent negative responses have been documented in the HPI. ROS Other: All systems not noted in ROS Statement are negative. Past Medical History Past Medical History: Asthma Additional Past Medical History / Comment(s): pt reports hx of SVT History of Any Multi-Drug Resistant Organisms: None Reported Past Surgical History: Ablation, Cholecystectomy, Heart Catheterization Additional Past Surgical History / Comment(s): heart ablation 12/2015 d and c Past Psychological History: No Psychological Hx Reported, Anxiety Smoking Status: Current every day smoker Past Alcohol Use History: None Reported Past Drug Use History: None Reported General Exam - General Exam Comments Initial Comments: General: The patient is awake and alert, in no distress, and does not appear acutely ill. Eye: Pupils are equal, round and reactive to light, extra-ocular movements are intact. No nystagmus. There is normal conjunctiva bilaterally. No signs of icterus. Ears, nose, mouth and throat: There are moist mucous membranes and no oral lesions. Neck: The neck is supple, there is no tenderness or JVD. Cardiovascular: There is a regular rate and rhythm. No murmur, rub or gallop is appreciated. Respiratory: Lungs are clear to auscultation, respirations are non-labored, breath sounds are equal. No wheezes, stridor, rales, or rhonchi. Gastrointestinal: Soft, non-distended, mild right lower quadrant abdominal pain to palpation the remaining abdomen nontender and is without masses or organomegaly noted. There is no rebound or guarding present. Musculoskeletal: Normal ROM, no tenderness. Strength 5/5. Sensation intact. Pulses equal bilaterally 2+. Neurological: A&O x 3. CN II-XII intact grossly, There are no obvious motor or sensory deficits. Coordination appears grossly intact. Speech is normal. Skin: Skin is warm and dry and no rashes or lesions are noted. Psychiatric: Cooperative, appropriate mood & affect, normal judgment. Limitations: no limitations Course Vital Signs 12/16/19 08:58 Temperature 97.9 F Pulse Rate 102 H Respiratory 18 Rate Blood Pressure 131/73 O2 Sat by Pulse 100 Oximetry Medical Decision Making - Medical Decision Making 19-year-old female presents today for chief complaint of right lower quadrant abdominal pain. HCG (-). Patient concern for appendicitis. There is no imaging studies consistent with appendicitis as CT with contrast was obtained. US revealed findings consistent ovarian cyst with possible recent rupture, patient denies vaginal bleeding or discharge, refuses pelvic exam. Patient was mild leukocytosis history of diarrhea and vomiting. She states she has had fevers, no recorded fevers in the ER nor medications administered by patient prior to arrival. Patient on re-exam has minimal pain states significant improvement. Discussed case with attending who is agreeable to discharge and pcp f/u I recommended obgyn f/u and return parameters as discussed patient agreeable to care plan and discharge. - Lab Data Result diagrams: 12/16/19 10:01 12/16/19 10:01 Lab Results 12/16/19 12/16/19 12/16/19 Range/Units 09:10 09:10 10:01 WBC 14.3 H (3.8-10.6) k/uL RBC 5.15 (3.80-5.40) m/uL Hgb 13.8 (11.4-16.0) gm/dL Hct 43.4 (34.0-46.0) % MCV 84.3 (80.0-100.0) fL MCH 26.8 (25.0-35.0) pg MCHC 31.8 (31.0-37.0) g/dL RDW 15.0 (11.5-15.5) % Plt Count 302 (150-450) k/uL Neutrophils % 74 % Lymphocytes % 19 % Monocytes % 5 % Eosinophils % 2 % Basophils % 1 % Neutrophils # 10.5 H (1.3-7.7) k/uL Lymphocytes # 2.6 (1.0-4.8) k/uL Monocytes # 0.7 (0-1.0) k/uL Eosinophils # 0.2 (0-0.7) k/uL Basophils # 0.1 (0-0.2) k/uL Sodium (137-145) mmol/L Potassium (3.5-5.1) mmol/L Chloride (98-107) mmol/L Carbon Dioxide (22-30) mmol/L Anion Gap mmol/L BUN (7-17) mg/dL Creatinine (0.52-1.04) mg/dL Est GFR (CKD-EPI)AfAm (>60 ml/min/1.73 sqM) Est GFR (CKD-EPI)NonAf (>60 ml/min/1.73 sqM) Glucose (74-99) mg/dL Calcium (8.4-10.2) mg/dL Total Bilirubin (0.2-1.3) mg/dL AST (14-36) U/L ALT (4-34) U/L Alkaline Phosphatase (38-126) U/L Total Protein (6.3-8.2) g/dL Albumin (3.5-5.0) g/dL Urine Color Light Yellow Urine Appearance Clear (Clear) Urine pH 5.5 (5.0-8.0) Ur Specific [place] 1.002 (1.001-1.035) Urine Protein Negative (Negative) Urine Glucose (UA) Negative (Negative) Urine Ketones Negative (Negative) Urine Blood Negative (Negative) Urine Nitrite Negative (Negative) Urine Bilirubin Negative (Negative) Urine Urobilinogen <2.0 (<2.0) mg/dL Ur Leukocyte Esterase Negative (Negative) Urine HCG, Qual Not Detected (Not Detectd) 12/16/19 Range/Units 10:01 WBC (3.8-10.6) k/uL RBC (3.80-5.40) m/uL Hgb (11.4-16.0) gm/dL Hct (34.0-46.0) % MCV (80.0-100.0) fL MCH (25.0-35.0) pg MCHC (31.0-37.0) g/dL RDW (11.5-15.5) % Plt Count (150-450) k/uL Neutrophils % % Lymphocytes % % Monocytes % % Eosinophils % % Basophils % % Neutrophils # (1.3-7.7) k/uL Lymphocytes # (1.0-4.8) k/uL Monocytes # (0-1.0) k/uL Eosinophils # (0-0.7) k/uL Basophils # (0-0.2) k/uL Sodium 140 (137-145) mmol/L Potassium 5.1 (3.5-5.1) mmol/L Chloride 112 H (98-107) mmol/L Carbon Dioxide 20 L (22-30) mmol/L Anion Gap 8 mmol/L BUN 11 (7-17) mg/dL Creatinine 0.57 (0.52-1.04) mg/dL Est GFR (CKD-EPI)AfAm >90 (>60 ml/min/1.73 sqM) Est GFR (CKD-EPI)NonAf >90 (>60 ml/min/1.73 sqM) Glucose 95 (74-99) mg/dL Calcium 9.7 (8.4-10.2) mg/dL Total Bilirubin 0.7 (0.2-1.3) mg/dL AST 30 (14-36) U/L ALT 19 (4-34) U/L Alkaline Phosphatase 120 (38-126) U/L Total Protein 7.6 (6.3-8.2) g/dL Albumin 4.4 (3.5-5.0) g/dL Urine Color Urine Appearance (Clear) Urine pH (5.0-8.0) Ur Specific [place] (1.001-1.035) Urine Protein (Negative) Urine Glucose (UA) (Negative) Urine Ketones (Negative) Urine Blood (Negative) Urine Nitrite (Negative) Urine Bilirubin (Negative) Urine Urobilinogen (<2.0) mg/dL Ur Leukocyte Esterase (Negative) Urine HCG, Qual (Not Detectd) Disposition Clinical Impression: Leukocytosis, Right lower quadrant abdominal pain, Ovarian cyst Disposition: HOME SELF-CARE Condition: Good Instructions (If sedation given, give patient instructions): Abdominal Pain (ED) Additional Instructions: Please use medication as discussed. Please follow-up with family doctor in the next 2 days, as well as your OBGYN, i recommend reviewing US with OB and discussing appropriate follow-up. Please return to emergency room if the symptoms increase or worsen or for any other concerns. Is patient prescribed a controlled substance at d/c from ED?: No Referrals: None,Stated [Primary Care Provider] - 1-2 days [facility] [NON-STAFF] - 1-2 days Sveta Flores DO [Doctor of Osteopathic Medicine] - 1-2 days Time of Disposition: 11:39
[2019-12-16 10:09] LABS: Basophils # (A) 0.1 k/uL (0-0.2); Basophils % (A) 1 %; Eosinophils # (A) 0.2 k/uL (0-0.7); Eosinophils % (A) 2 %; HCT 43.4 % (34.0-46.0); HGB 13.8 gm/dL (11.4-16.0); Lymphocytes # (A) 2.6 k/uL (1.0-4.8); Lymphocytes % (A) 19 %; MCH 26.8 pg (25.0-35.0); MCHC 31.8 g/dL (31.0-37.0); MCV 84.3 fL (80.0-100.0); Mean Platelet Volume 7.8; Monocytes # (A) 0.7 k/uL (0-1.0); Monocytes % (A) 5 %; Neutrophils # (A) 10.5 k/uL (1.3-7.7); Neutrophils % (A) 74 %; Platelet Count 302 k/uL (150-450); RBC 5.15 m/uL (3.80-5.40); WBC 14.3 k/uL (3.8-10.6)
[2019-12-16 10:21] LABS: ALT 19 U/L (4-34); AST 30 U/L (14-36); African American GFR (CKD) >90 (>60 ml/min/1.73 sqM); Albumin 4.4 g/dL (3.5-5.0); Alkaline Phosphatase 120 U/L (38-126); Anion Gap 8 mmol/L; Blood Urea Nitrogen 11 mg/dL (7-17); Calcium 9.7 mg/dL (8.4-10.2); Carbon Dioxide 20 mmol/L (22-30); Chloride 112 mmol/L (98-107); Glucose 95 mg/dL (74-99); Non-African American GFR(CKD) >90 (>60 ml/min/1.73 sqM); Sodium 140 mmol/L (137-145); Total Bilirubin 0.7 mg/dL (0.2-1.3); Total Protein 7.6 g/dL (6.3-8.2)
[2019-12-16 10:23] LABS: Potassium 5.1 mmol/L (3.5-5.1)
--- NOTE | 2019-12-16 10:30 | CT ---
EXAMINATION TYPE: CT abdomen pelvis w con DATE OF EXAM: 12/16/2019 HISTORY: RLQ pain. possible appendicitis CT DLP: 1169.1mGycm Automated Exposure Control for Dose Reduction was Utilized. CONTRAST: CT scan of the abdomen and pelvis is performed without oral but with IV Contrast, patient injected wi th 100 ml mL of Isovue 300. COMPARISON: CT abdomen pelvis March 27, [address] January 15, 2019 FINDINGS: LUNG BASES: No significant abnormality is appreciated. LIVER/GB: Cholecystectomy clips are redemonstrated. PANCREAS: No significant abnormality is seen. SPLEEN: No significant abnormality is seen. ADRENALS: No significant abnormality is seen. KIDNEYS: No significant abnormality is seen. BOWEL: Evaluation bowel suboptimal secondary to lack of enteric contrast. There is no suspicious smal l or large bowel dilatation. Normal-appearing appendix noted ascending from cecum coronal image 49. UTERUS/ADNEXA: Anteverted uterus is identified. Both ovaries normal in size. Left ovary has low dense 2.3 cm lesion on long axis axial image 73 felt to reflect prominent follicle or simple small ovarian cyst stable or slightly smaller from prior studies. Interval resolution of right adnexal cystic lesi on from most recent CT. Trace free fluid pelvic cul-de-sac axis image 75 on current study is nonspeci fic. LYMPH NODES: No greater than 1cm abdominal or pelvic lymph nodes are appreciated. OSSEOUS STRUCTURES: No significant abnormality is seen. OTHER: Surgical clip anterior upper pelvis axial image 59 redemonstrated stable in position from prio r. IMPRESSION: No CT evidence for acute appendicitis. New trace free fluid in pelvic cul-de-sac is nonsp ecific, prior visualized cystic lesion right ovary is now not seen. Differential would include recent ly ruptured ovarian cyst. No suspicious new or acute findings otherwise identified.
--- NOTE | 2019-12-16 11:23 | US ---
EXAMINATION TYPE: US transvaginal DATE OF EXAM: 12/16/2019 COMPARISON: NONE CLINICAL HISTORY: RLQ tenderness. pain TECHNIQUE: Transvaginal (TV). Date of LMP: 11/16/2019 EXAM MEASUREMENTS: Uterus: 8.6 x 4.1 x 4.9 cm Endometrial Stripe: 1.1 cm Right Ovary: 3.0 x 1.4 x 2.4 cm Left Ovary: 3.5 x 2.0 x 3.1 cm 1. Uterus: Anteverted Nabothian cyst seen. 2. Endometrium: wnl 3. Right Ovary: wnl 4. Left Ovary: Anechoic area seen 2.5 x 2.0 x 2.3 cm. Spectral, color and waveform doppler imaging shows good arterial and venous flow within the ovaries ; there is no evidence for ovarian torsion. 5. Bilateral Adnexa: wnl 6. Posterior cul-de-sac: Small amount of fluid seen. IMPRESSION: 1. Small amount of free fluid in the pelvis with 2.5 cm simple left ovarian cyst
[2019-12-16] MEDS ORDERED: KETOROLAC 30 MG/ML 1 ML VIAL IVP STA (11:40)
[2019-12-16 11:43] VITALS: BP 126/88; PULSE 80; RESP 16; TEMP 98.3
== END 2019-12-16 11:56 | disposition home or self-care (01) ==
LOC: EC 08:57
DX: N83.202 Unspecified ovarian cyst, left side (principal); D72.829 Elevated white blood cell count, unspecified; R10.31 Right lower quadrant pain; F17.200 Nicotine dependence, unspecified, uncomplicated; Z79.899 Other long term (current) drug therapy; Z88.0 Allergy status to penicillin; Z88.5 Allergy status to narcotic agent
CPT/HCPCS: 36415; 80053; 85025; 81003; 81025; 93975; 76830; 74177; 99284; 96374; 96361; J1885; Q9967

== ENCOUNTER 2020-01-15 14:29 | Emergency (ER) | payer OTHER ==
[2020-01-15] MEDS ORDERED: ACETAMINOPHEN TAB 500 MG TAB PO STA (15:20)
[2020-01-15] MEDS ORDERED: IBUPROFEN 600 MG TAB PO STA (15:20)
--- NOTE | 2020-01-15 15:50 | ED ---
Female Urogenital HPI - General Chief complaint: Vaginal Bleeding Stated complaint: Vaginal Bleeding Time Seen by Provider: 01/15/20 14:56 Source: patient, RN notes reviewed, old records reviewed Mode of arrival: ambulatory Limitations: no limitations - History of Present Illness Initial comments: This Patient is a 19-year-old female presents with heavy vaginal bleeding for the past 7 days. Patient reports that her last menstrual period was on the venth of this past month and was normally 4 days. She is reports that on the started to have heavy bleeding. She also rates emergency department today with a fever. She did not know she had a fear of her prior to arrival. She denies any specific abdominal pain. She does question possibly miscarriage at this time. She is trying to get and taking vitamins. reports over the past few days she's been bleeding going through a pad every few hours. Last Menstrual Period: 01/01/20 - Related Data Home Medications Medication Instructions Recorded Confirmed Aviane-28 1 tab PO DAILY 03/27/19 03/27/19 Previous Rx's Medication Instructions Recorded Ondansetron Odt [Zofran Odt] 4 mg PO Q8HR PRN #12 tab 03/27/19 Allergies Allergy/AdvReac Type Severity Reaction Status Date / Time amoxicillin Allergy Anaphylaxis Verified 01/15/20 14:38 morphine AdvReac Rash/Hives Verified 01/15/20 14:38 Review of Systems ROS Statement: Those systems with pertinent positive or pertinent negative responses have been documented in the HPI. ROS Other: All systems not noted in ROS Statement are negative. Past Medical History Past Medical History: Asthma Additional Past Medical History / Comment(s): pt reports hx of SVT History of Any Multi-Drug Resistant Organisms: None Reported Past Surgical History: Ablation, Cholecystectomy, Heart Catheterization Additional Past Surgical History / Comment(s): heart ablation 12/2015 d and c Past Psychological History: Anxiety Smoking Status: Current every day smoker Past Alcohol Use History: None Reported Past Drug Use History: None Reported General Exam - General Exam Comments Initial Comments: Patient is febrile, temperature 101.7. Limitations: no limitations General appearance: alert, in no apparent distress Head exam: Present: atraumatic, normocephalic, normal inspection Eye exam: Present: normal appearance, PERRL, EOMI. Absent: scleral icterus, conjunctival injection, periorbital swelling ENT exam: Present: normal exam, mucous membranes moist Neck exam: Present: normal inspection. Absent: tenderness, meningismus, lymphadenopathy Respiratory exam: Present: normal lung sounds bilaterally. Absent: respiratory distress, wheezes, rales, rhonchi, stridor Cardiovascular Exam: Present: regular rate, normal rhythm, normal heart sounds. Absent: systolic murmur, diastolic murmur, rubs, gallop, clicks GI/Abdominal exam: Present: soft, normal bowel sounds. Absent: distended, ten derness, guarding, rebound, rigid Extremities exam: Present: normal inspection, full ROM, normal capillary refill. Absent: tenderness, pedal edema, joint swelling, calf tenderness Back exam: Present: normal inspection Neurological exam: Present: alert, oriented X3, CN II-XII intact Psychiatric exam: Present: normal affect, normal mood Skin exam: Present: warm, dry, intact, normal color. Absent: rash Course Vital Signs 01/15/20 01/15/20 14:36 17:16 Temperature 101.3 F H 99.8 F H Pulse Rate 124 H 105 H Respiratory 18 20 Rate Blood Pressure 124/78 121/98 O2 Sat by Pulse 100 99 Oximetry Medical Decision Making - Medical Decision Making 7-year-old female presents with heavy vaginal bleeding for the past week. Patient's hCG is negative. Hemoglobin is stable. She has no adnexal tenderness. She also arrived with a fever. She refused influenza test. She went and just runny nose and cough. She is given Motrin Tylenol. She otherwise appears well as no distress. Patient will be discharged at this time with prescription for abnormal uterine bleeding, Motrin and Tylenol for pain and fever. All questions answered return parameters were discussed. - Lab Data Result diagrams: 01/15/20 16:35 Lab Results 01/15/20 01/15/20 01/15/20 Range/Units 15:00 16:35 16:35 WBC 5.1 (3.8-10.6) k/uL RBC 5.09 (3.80-5.40) m/uL Hgb 13.8 (11.4-16.0) gm/dL Hct 42.9 (34.0-46.0) % MCV 84.3 (80.0-100.0) fL MCH 27.2 (25.0-35.0) pg MCHC 32.2 (31.0-37.0) g/dL RDW 14.2 (11.5-15.5) % Plt Count 262 (150-450) k/uL Neutrophils % 65 % Lymphocytes % 20 % Monocytes % 12 % Eosinophils % 1 % Basophils % 0 % Neutrophils # 3.3 (1.3-7.7) k/uL Lymphocytes # 1.0 (1.0-4.8) k/uL Monocytes # 0.6 (0-1.0) k/uL Eosinophils # 0.0 (0-0.7) k/uL Basophils # 0.0 (0-0.2) k/uL APTT 23.7 (22.0-30.0) sec HCG, Quant mIU/mL Urine Color Urine Appearance (Clear) Urine pH (5.0-8.0) Ur Specific [place] (1.001-1.035) Urine Protein (Negative) Urine Glucose (UA) (Negative) Urine Ketones (Negative) Urine Blood (Negative) Urine Nitrite (Negative) Urine Bilirubin (Negative) Urine Urobilinogen (<2.0) mg/dL Ur Leukocyte Esterase (Negative) Urine RBC (0-5) /hpf Urine WBC (0-5) /hpf Ur Squamous Epith Cells (0-4) /hpf Urine Bacteria (None) /hpf Urine Mucus (None) /hpf Urine HCG, Qual (Not Detectd) Trichomonas Ag (Rapid) Negative (Negative) 01/15/20 01/15/20 01/15/20 Range/Units 16:35 16:45 16:45 WBC (3.8-10.6) k/uL RBC (3.80-5.40) m/uL Hgb (11.4-16.0) gm/dL Hct (34.0-46.0) % MCV (80.0-100.0) fL MCH (25.0-35.0) pg MCHC (31.0-37.0) g/dL RDW (11.5-15.5) % Plt Count (150-450) k/uL Neutrophils % % Lymphocytes % % Monocytes % % Eosinophils % % Basophils % % Neutrophils # (1.3-7.7) k/uL Lymphocytes # (1.0-4.8) k/uL Monocytes # (0-1.0) k/uL Eosinophils # (0-0.7) k/uL Basophils # (0-0.2) k/uL APTT (22.0-30.0) sec HCG, Quant <2.4 mIU/mL Urine Color Yellow Urine Appearance Cloudy H (Clear) Urine pH 7.5 (5.0-8.0) Ur Specific [place] 1.017 (1.001-1.035) Urine Protein 1+ H (Negative) Urine Glucose (UA) Negative (Negative) Urine Ketones Negative (Negative) Urine Blood Large H (Negative) Urine Nitrite Negative (Negative) Urine Bilirubin Negative (Negative) Urine Urobilinogen 4.0 (<2.0) mg/dL Ur Leukocyte Esterase Negative (Negative) Urine RBC >182 H (0-5) /hpf Urine WBC 7 H (0-5) /hpf Ur Squamous Epith Cells 9 H (0-4) /hpf Urine Bacteria Occasional H (None) /hpf Urine Mucus Occasional H (None) /hpf Urine HCG, Qual Not Detected (Not Detectd) Trichomonas Ag (Rapid) (Negative) Disposition Clinical Impression: Fever, Abnormal uterine bleeding Disposition: ADMITTED IP TO THIS [facility] Condition: Stable Instructions (If sedation given, give patient instructions): Fever in Adults (ED) Additional Instructions: Take Motrin and Tylenol for pain and fever. 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 Is patient prescribed a controlled substance at d/c from ED?: No Referrals: None,Stated [Primary Care Provider] - 1-2 days Time of Disposition: 17:47
[2020-01-15] MEDS ORDERED: SODIUM CHLORIDE 0.9% 1,000 ML IV ONE (16:13)
[2020-01-15 17:15] LABS: Appearance,Urine Cloudy (Clear); Bacteria,Urine Occasional /hpf; Bilirubin,Urine Negative (Negative); Blood,Urine Large (Negative); Color,Urine Yellow; Glucose,Urine (UA) Negative (Negative); Ketones,Urine Negative (Negative); Leukocyte Esterase,Urine Negative (Negative); Mucus,Urine Occasional /hpf; Nitrite,Urine Negative (Negative); PH, Urine 7.5 (5.0-8.0); Protein,Urine 1+ (Negative); RBC,Urine >182 /hpf (0-5); Specific Gravity,Urine 1.017 (1.001-1.035); Squamous Epithelial Cell,Urine 9 /hpf (0-4); WBC,Urine 7 /hpf (0-5)
[2020-01-15 17:17] VITALS: BP 121/98; PULSE 105; RESP 20; TEMP 99.8
[2020-01-15 17:22] LABS: Basophils % (A) 0 %; Eosinophils % (A) 1 %; HCT 42.9 % (34.0-46.0); HGB 13.8 gm/dL (11.4-16.0); Lymphocytes % (A) 20 %; MCH 27.2 pg (25.0-35.0); MCHC 32.2 g/dL (31.0-37.0); MCV 84.3 fL (80.0-100.0); Mean Platelet Volume 8.3; Monocytes # (A) 0.6 k/uL (0-1.0); Monocytes % (A) 12 %; Neutrophils # (A) 3.3 k/uL (1.3-7.7); Neutrophils % (A) 65 %; Platelet Count 262 k/uL (150-450); RBC 5.09 m/uL (3.80-5.40); RDW 14.2 % (11.5-15.5); WBC 5.1 k/uL (3.8-10.6)
[2020-01-17 13:19] LABS: C. trachomatis,PCR Negative (Neg,Equiv); Chlamydia trachomatis Source Vagina
[2020-01-17 13:35] LABS: N. gonorrhoeae,PCR Negative (Neg,Equiv); Neisseria Source Vagina
== END 2020-01-15 17:53 | disposition other institution (70) ==
LOC: EC 14:29
DX: N93.9 Abnormal uterine and vaginal bleeding, unspecified (principal); R50.9 Fever, unspecified; Z32.02 Encounter for pregnancy test, result negative; R09.89 Other specified symptoms and signs involving the circulatory and respiratory systems; R05 Cough; F17.200 Nicotine dependence, unspecified, uncomplicated; Z88.0 Allergy status to penicillin; Z88.5 Allergy status to narcotic agent; Z79.3 Long term (current) use of hormonal contraceptives; Z53.20 Procedure and treatment not carried out because of patient's decision for unspecified reasons
CPT/HCPCS: 36415; 81001; 81025; 84702; 85025; 85730; 87070; 87491; 87591; 87808; 96360; 99285

== ENCOUNTER 2020-06-07 11:43 | Emergency (ER) | payer OTHER ==
[2020-06-07 12:05] VITALS: TEMP 98
--- NOTE | 2020-06-07 13:18 | ED ---
Abdominal Pain HPI - General Chief Complaint: Abdominal Pain Stated Complaint: 18 weeks & lots of pressure Time Seen by Provider: 06/07/20 12:43 Source: patient Mode of arrival: ambulatory Limitations: no limitations - History of Present Illness Initial Comments: Patient is a 19-year-old female presenting to the emergency Department with complaints of lower abdominal pressure that started yesterday. Patient is currently 18 weeks . She does see Dr. Eden from [facility] as her WEB SITE SPECIALIST. She is considered high risk secondary to a shortened cervix. She is . Patient states that she was sitting at a bonfire last night when she started having lower abdominal pressure. Patient states she thought it was just from sitting so long so she stood up but the pain increased. Patient then went inside, lay down and did sleep through the night. Patient states when she woke up this morning she stood up and noticed that the pressure was still there so she decided to come into the ER. Patient states she did not want to drive all the way to [facility]. She describes the pressure as all throughout her lower abdomen. She denies any sharp shooting pains. She denies any vaginal discharge or bleeding. She states she just received an ultrasound 4 days ago for a regular follow-up. They did see a small placenta previa, baby was normal. Patient has been feeling the baby move regularly throughout the last few days. She also states she has been feeling a little bit nauseous over the past few days, no active vomiting, no diarrhea. She denies any recent fever or chills. She denies any urinary symptoms. She denies any cough, shortness of breath. Of note, patient states that her first , patient went into labor at 26 weeks, delivered baby at 30 weeks. She has no further complaints at this time. - Related Data Home Medications Medication Instructions Recorded Confirmed Aviane-28 1 tab PO DAILY 03/27/19 03/27/19 Previous Rx's Medication Instructions Recorded Ondansetron Odt [Zofran Odt] 4 mg PO Q8HR PRN #12 tab 03/27/19 Allergies Allergy/AdvReac Type Severity Reaction Status Date / Time amoxicillin Allergy Anaphylaxis Verified 06/07/20 12:12 morphine AdvReac Rash/Hives Verified 06/07/20 12:12 Review of Systems ROS Statement: Those systems with pertinent positive or pertinent negative responses have been documented in the HPI. ROS Other: All systems not noted in ROS Statement are negative. Past Medical History Past Medical History: Asthma Additional Past Medical History / Comment(s): pt reports hx of SVT History of Any Multi-Drug Resistant Organisms: None Reported Past Surgical History: Ablation, Cholecystectomy, Heart Catheterization Additional Past Surgical History / Comment(s): heart ablation 12/2015 d and c Past Psychological History: Anxiety Smoking Status: Current every day smoker Past Alcohol Use History: None Reported Past Drug Use History: None Reported General Exam - General Exam Comments Initial Comments: GENERAL: Well-appearing, well-nourished and in no acute distress. HEAD: Atraumatic, normocephalic. EYES: Pupils equal round and reactive to light, extraocular movements intact, sclera anicteric, conjunctiva are normal. ENT: TMs normal, nares patent, oropharynx clear without exudates. Moist mucous membranes. NECK: Normal range of motion, supple without lymphadenopathy or JVD. LUNGS: Breath sounds clear to auscultation bilaterally and equal. No wheezes rales or rhonchi. HEART: Regular rate and rhythm without murmurs, rubs or gallops. ABDOMEN: Mild suprapubic pressure, no areas of pain. Soft, normoactive bowel sounds. No guarding, no rebound. No masses appreciated. EXTREMITIES: Normal range of motion, no pitting or edema. No clubbing or cyanosis. NEUROLOGICAL: Normal speech, normal gait. PSYCH: Normal mood, normal affect. SKIN: Warm, Dry, normal turgor, no rashes or lesions noted. Limitations: no limitations External exam: Present: normal external exam Speculum exam: Present: normal speculum exam. Absent: vaginal discharge, cervical discharge, vaginal bleeding Course Vital Signs 06/07/20 06/07/20 12:01 15:18 Temperature 98.0 F Pulse Rate 112 H 71 Respiratory 18 16 Rate Blood Pressure 112/66 126/76 O2 Sat by Pulse 98 99 Oximetry Medical Decision Making - Medical Decision Making Patient is a 19-year-old female, currently 18 weeks , presenting for lower abdominal pressure since last night. She is considered high risk secondary to shortened cervix as well as recently diagnosed placenta previa. Her WEB SITE SPECIALIST is Dr. Eden at [facility]. Patient does have a mild white count at 12, rest of laboratories show no acute abnormalities. Urine shows no evidence of infection. Patient's ultrasound reveals a single IUP, normal heart rate at 155. There is a suspected placental lynch, recommended follow-up with ultrasound. Patient has had no vaginal bleeding, no sharp pains. I did contact patient's WEB SITE SPECIALIST office however Dr. Eden was not available, her associate, Dr. Mackenzie was okay with patient being discharged and will see in the office in the next 1-2 days. We did fax patient's report to their office as requested. Patient is also in agreement with this plan of care. We did discuss pelvic rest. She is stable for discharge. Return parameters were discussed with the patient she verbalized understanding. Case discussed with Dr. Rollins. - Lab Data Result diagrams: 06/07/20 13:30 06/07/20 13:30 Lab Results 06/07/20 06/07/20 06/07/20 Range/Units 13:30 13:30 13:30 WBC 12.0 H (3.8-10.6) k/uL RBC 4.69 (3.80-5.40) m/uL Hgb 13.4 (11.4-16.0) gm/dL Hct 41.3 (34.0-46.0) % MCV 88.1 (80.0-100.0) fL MCH 28.6 (25.0-35.0) pg MCHC 32.5 (31.0-37.0) g/dL RDW 15.3 (11.5-15.5) % Plt Count 271 (150-450) k/uL Neutrophils % 75 % Lymphocytes % 16 % Monocytes % 6 % Eosinophils % 1 % Basophils % 1 % Neutrophils # 8.9 H (1.3-7.7) k/uL Lymphocytes # 1.9 (1.0-4.8) k/uL Monocytes # 0.7 (0-1.0) k/uL Eosinophils # 0.1 (0-0.7) k/uL Basophils # 0.2 (0-0.2) k/uL Manual Slide Review Performed RBC Morphology Normal Sodium 134 L (137-145) mmol/L Potassium 4.7 (3.5-5.1) mmol/L Chloride 110 H (98-107) mmol/L Carbon Dioxide 19 L (22-30) mmol/L Anion Gap 5 mmol/L BUN 6 L (7-17) mg/dL Creatinine 0.41 L (0.52-1.04) mg/dL Est GFR (CKD-EPI)AfAm >90 (>60 ml/min/1.73 sqM) Est GFR (CKD-EPI)NonAf >90 (>60 ml/min/1.73 sqM) Glucose 110 H (74-99) mg/dL Calcium 9.2 (8.4-10.2) mg/dL Total Bilirubin 0.7 (0.2-1.3) mg/dL AST 34 (14-36) U/L ALT 15 (4-34) U/L Alkaline Phosphatase 87 (38-126) U/L Total Protein 6.7 (6.3-8.2) g/dL Albumin 3.7 (3.5-5.0) g/dL Urine Color Yellow Urine Appearance Cloudy H (Clear) Urine pH 6.5 (5.0-8.0) Ur Specific [place] 1.027 (1.001-1.035) Urine Protein Trace H (Negative) Urine Glucose (UA) Negative (Negative) Urine Ketones Negative (Negative) Urine Blood Negative (Negative) Urine Nitrite Negative (Negative) Urine Bilirubin Negative (Negative) Urine Urobilinogen 3.0 (<2.0) mg/dL Ur Leukocyte Esterase Small H (Negative) Urine RBC 3 (0-5) /hpf Urine WBC 1 (0-5) /hpf Ur Squamous Epith Cells 10 H (0-4) /hpf Calcium Oxalate Crystal Occasional H (None) /hpf Urine Bacteria Rare H (None) /hpf Urine Mucus Many H (None) /hpf Urine Sperm Rare (None) /hpf Blood Type Blood Type Recheck Bld Type Recheck Status 06/07/20 Range/Units 13:30 WBC (3.8-10.6) k/uL RBC (3.80-5.40) m/uL Hgb (11.4-16.0) gm/dL Hct (34.0-46.0) % MCV (80.0-100.0) fL MCH (25.0-35.0) pg MCHC (31.0-37.0) g/dL RDW (11.5-15.5) % Plt Count (150-450) k/uL Neutrophils % % Lymphocytes % % Monocytes % % Eosinophils % % Basophils % % Neutrophils # (1.3-7.7) k/uL Lymphocytes # (1.0-4.8) k/uL Monocytes # (0-1.0) k/uL Eosinophils # (0-0.7) k/uL Basophils # (0-0.2) k/uL Manual Slide Review RBC Morphology Sodium (137-145) mmol/L Potassium (3.5-5.1) mmol/L Chloride (98-107) mmol/L Carbon Dioxide (22-30) mmol/L Anion Gap mmol/L BUN (7-17) mg/dL Creatinine (0.52-1.04) mg/dL Est GFR (CKD-EPI)AfAm (>60 ml/min/1.73 sqM) Est GFR (CKD-EPI)NonAf (>60 ml/min/1.73 sqM) Glucose (74-99) mg/dL Calcium (8.4-10.2) mg/dL Total Bilirubin (0.2-1.3) mg/dL AST (14-36) U/L ALT (4-34) U/L Alkaline Phosphatase (38-126) U/L Total Protein (6.3-8.2) g/dL Albumin (3.5-5.0) g/dL Urine Color Urine Appearance (Clear) Urine pH (5.0-8.0) Ur Specific [place] (1.001-1.035) Urine Protein (Negative) Urine Glucose (UA) (Negative) Urine Ketones (Negative) Urine Blood (Negative) Urine Nitrite (Negative) Urine Bilirubin (Negative) Urine Urobilinogen (<2.0) mg/dL Ur Leukocyte Esterase (Negative) Urine RBC (0-5) /hpf Urine WBC (0-5) /hpf Ur Squamous Epith Cells (0-4) /hpf Calcium Oxalate Crystal (None) /hpf Urine Bacteria (None) /hpf Urine Mucus (None) /hpf Urine Sperm (None) /hpf Blood Type O Positive Blood Type Recheck No Previous Record Bld Type Recheck Status [facility] ONLY Disposition Clinical Impression: Abdominal pain during Disposition: HOME SELF-CARE Condition: Stable Instructions (If sedation given, give patient instructions): Abdominal Pain in (ED) Additional Instructions: Please return to the Emergency Department if symptoms worsen or any other concerns. Follow-up with WEB SITE SPECIALIST as discussed. Recommend pelvic rest. Is patient prescribed a controlled substance at d/c from ED?: No Referrals: Armando Chow MD [Primary Care Provider] - 1-2 days
[2020-06-07 13:55] LABS: Appearance,Urine Cloudy (Clear); Bacteria,Urine Rare /hpf; Bilirubin,Urine Negative (Negative); Blood,Urine Negative (Negative); Calcium Oxalate Crystals,Urine Occasional /hpf; Color,Urine Yellow; Glucose,Urine (UA) Negative (Negative); Ketones,Urine Negative (Negative); Leukocyte Esterase,Urine Small (Negative); Mucus,Urine Many /hpf; Nitrite,Urine Negative (Negative); PH, Urine 6.5 (5.0-8.0); Protein,Urine Trace (Negative); RBC,Urine 3 /hpf (0-5); Specific Gravity,Urine 1.027 (1.001-1.035); Sperm,Urine Rare /hpf; Squamous Epithelial Cell,Urine 10 /hpf (0-4); WBC,Urine 1 /hpf (0-5)
[2020-06-07 14:02] LABS: Basophils # (A) 0.2 k/uL (0-0.2); Basophils % (A) 1 %; Eosinophils # (A) 0.1 k/uL (0-0.7); Eosinophils % (A) 1 %; HCT 41.3 % (34.0-46.0); HGB 13.4 gm/dL (11.4-16.0); Lymphocytes # (A) 1.9 k/uL (1.0-4.8); Lymphocytes % (A) 16 %; MCH 28.6 pg (25.0-35.0); MCHC 32.5 g/dL (31.0-37.0); MCV 88.1 fL (80.0-100.0); Mean Platelet Volume 8.9; Monocytes # (A) 0.7 k/uL (0-1.0); Monocytes % (A) 6 %; Neutrophils # (A) 8.9 k/uL (1.3-7.7); Neutrophils % (A) 75 %; Platelet Count 271 k/uL (150-450); RBC 4.69 m/uL (3.80-5.40); RDW 15.3 % (11.5-15.5)
--- NOTE | 2020-06-07 14:05 | US ---
EXAMINATION TYPE: US OB >= 14 wk fetus DATE OF EXAM: 06/07/2020 COMPARISON: None CLINICAL HISTORY: pelvic pressure x 1 day, no bleeding or spotting TECHNIQUE: Transabdominal (TA) GESTATIONAL AGE / DATING Physician Established: (16 weeks/5 days) EDC: 11/17/2020 Dates by LMP: (16 weeks/6 days) EDC: 11/16/2020 Dates by First Scan: No previous this is first scan ( Dates by Current Scan: (16 weeks/6 days) EDC: 11/16/2020 Beta HCG (if available): Not available at this time SURVEY IUP: Single PLACENTA: Fundal PREVIA: No Previa INÉS: 12.7 cm Normal CERVICAL LENGTH (transabdominal: norm > 3.0cm): 3.4 cm BIOMETRY PRESENTATION: Breech LIE/: Longitudinal BPD: 3.6 cm 17 weeks / 0 days HC: 13 cm 16 weeks / 5 days AC: 10.9 cm 16 weeks / 5 days FL: 2.2 cm 16 weeks / 5 days ESTIMATED WEIGHT IN GRAMS: 166 grams ESTIMATED WEIGHT IN LBS/OZ: 0 lbs. 6 oz. WEIGHT PERCENTAGE BASED ON ESTABLISHED DATES: 42.9% HC/AC: 1.20 Normal FL/AC: 20.45 Normal HEART RATE: 155 bpm RHYTHM: Normal Single, viable IUP, measurement consistent with dates. Anechoic area visualized within placenta measu ring 3.5 x 1.5 x 1.5 cm . This may be a placental lynch. Follow-up can be performed. IMPRESSION: Single intrauterine gestation estimated at 16 weeks 6 days gestation based on current ultrasound rocío urements. Cardiac activity measures 155 bpm was observed during the study. 2. Suspected placental lynch. This could be followed with ultrasound
[2020-06-07 14:09] LABS: ALT 15 U/L (4-34); African American GFR (CKD) >90 (>60 ml/min/1.73 sqM); Albumin 3.7 g/dL (3.5-5.0); Anion Gap 5 mmol/L; Blood Urea Nitrogen 6 mg/dL (7-17); Calcium 9.2 mg/dL (8.4-10.2); Carbon Dioxide 19 mmol/L (22-30); Chloride 110 mmol/L (98-107); Glucose 110 mg/dL (74-99); Non-African American GFR(CKD) >90 (>60 ml/min/1.73 sqM); Sodium 134 mmol/L (137-145); Total Bilirubin 0.7 mg/dL (0.2-1.3); Total Protein 6.7 g/dL (6.3-8.2)
[2020-06-07 14:10] LABS: AST 34 U/L (14-36); Alkaline Phosphatase 87 U/L (38-126); Potassium 4.7 mmol/L (3.5-5.1)
[2020-06-07 15:19] VITALS: BP 126/76; PULSE 71; RESP 16
== END 2020-06-07 15:18 | disposition home or self-care (01) ==
LOC: EC 11:43
DX: O26.892 Other specified pregnancy related conditions, second trimester (principal); R10.30 Lower abdominal pain, unspecified; O99.332 Smoking (tobacco) complicating pregnancy, second trimester; F17.200 Nicotine dependence, unspecified, uncomplicated; Z3A.16 16 weeks gestation of pregnancy; Z88.0 Allergy status to penicillin; Z88.5 Allergy status to narcotic agent; Z90.49 Acquired absence of other specified parts of digestive tract
CPT/HCPCS: 36415; 76805; 80053; 81001; 85025; 86900; 86901; 99284

== ENCOUNTER 2020-06-16 20:11 | Outpatient (CLI) | payer OTHER ==
[2020-06-16 21:22] VITALS: BP 129/74; PULSE 108; RESP 16
--- NOTE | 2020-07-12 07:39 | P.MSEPDOC ---
Presenting Problems - Arrival Data Date of Arrival on Unit: 06/16/20 Time of Arrival on Unit: 20:11 Mode of Transport: Wheelchair - Complaint OB-Reason for Admission/Chief Complaint: Rule Out PROM Medical History - Information : 3 Para: 1 Term: 0 : 1 Abortions: Spontaneous or Elective: 1 Number of Living Children: 1 - Gestational Age Gestational Age by DOLORES (wks/days): 22 Weeks and 4 Days - History Complications: Placenta Previa Review of Systems - Review of Systems Constitutional: No problems Breast: No problems ENT: No problems Cardiovascular: No problems Respiratory: No problems Gastrointestinal: No problems Genitourinary: No problems Musculoskeletal: No problems Neurological: No problems Skin: No problems Vital Signs - Pulse Right Pulse Rate: 108 Pulse Assessment Method: Automatic Cuff - Respirations Respiratory Rate: 16 Oxygen Delivery Method: Room Air O2 Sat by Pulse Oximetry: 96 - Blood Pressure Right Arm Blood Pressure: 129/74 Blood Pressure Mean: 92 Blood Pressure Source: Automatic Cuff Medical Screen Scoring (Pre) - Cervical Exam Dilation: Exam Deferred Effacement: Exam Deferred Membranes: Intact - Uterine Contractions Frequency: N/A Duration: N/A Intensity: N/A - Maternal Vital Signs Maternal Temperature: N/A Maternal Blood Pressure: N/A Signs of Preeclampsia: N/A Maternal Respirations: N/A - Maternal Trauma Maternal Trauma: N/A - Assessment - Baby A Baseline FHR: 140 Position: N/A Station: N/A - Total Score - Baby A Total Score - Baby A: 0 - Total Score - Baby B Total Score - Baby B: 0 - Total Score - Baby C Total Score - Baby C: 0 - Level of Risk - Baby A Level of Risk - Baby A: Low (0-5) - Level of Risk - Baby B Level of Risk - Baby B: Low (0-5) - Level of Risk - Baby C Level of Risk - Baby C: Low (0-5) Physician Notification (Pre) - Physician Notified Physician Notified Date: 06/16/20 Physician Notified Time: 20:53 New Order Received: Yes - Notification Comment Comment: DC home with follow up - see obix for more details. Medical Screen Scoring (Post) - Cervical Exam Dilation: Exam Deferred Effacement: Exam Deferred Membranes: Intact - Uterine Contractions Frequency: N/A Duration: N/A Intensity: N/A - Maternal Vital Signs Maternal Temperature: N/A Maternal Blood Pressure: N/A Signs of Preeclampsia: N/A Maternal Respirations: N/A - Pain Assessment Pain Scale Used: Numeric (1 - 10) Pain Intensity: 0 - Maternal Trauma Maternal Trauma: N/A - Total Score Total Score - Baby A: 0 Total Score - Baby B: 0 Total Score - Baby C: 0 - Post Treatment Level of Risk Post Treatment Level of Risk - Baby A: Low (0-5) Post Treatment Level of Risk - Baby B: Low (0-5) Post Treatment Level of Risk - Baby C: Low (0-5) Disposition - Disposition OB Disposition: Discharge to home Discharge Date: 06/16/20 Discharge Time: 21:05 I agree with the RN Medical Screening Exam: No Physician's MSE Comment: inadequate documentation Risk & Benefit of care provided described in d/c instruction: No Risk & Benefit of Care Comment: inadequate documentation Diagnosis: Rule out rupture membranes
== END 2020-06-16 21:05 | disposition home or self-care (01) ==
LOC: FBPOP 20:11
PROVIDERS: ATTEND Obstetrics & Gynecology
DX: O26.892 Other specified pregnancy related conditions, second trimester (principal); Z3A.22 22 weeks gestation of pregnancy
CPT/HCPCS: 84112; G0463; 99213

== ENCOUNTER 2020-06-27 23:43 | Outpatient (CLI) | payer OTHER ==
[2020-06-28 00:01] VITALS: BP 114/71; PULSE 106; RESP 16; TEMP 98.3
--- NOTE | 2020-06-28 06:00 | P.MSEPDOC ---
Presenting Problems - Arrival Data Date of Arrival on Unit: 06/27/20 Time of Arrival on Unit: 23:50 Mode of Transport: Ambulatory - Complaint OB-Reason for Admission/Chief Complaint: Pain Comment: pelvic pain and pressure Medical History - Information : 3 Para: 1 Term: 0 : 1 Abortions: Spontaneous or Elective: 1 Number of Living Children: 1 - Gestational Age Gestational Age by DOLORES (wks/days): 19 Weeks and 5 Days - History Complications: Prior , Smoker Review of Systems - Review of Systems Constitutional: No problems Breast: No problems ENT: No problems Cardiovascular: No problems Respiratory: No problems Gastrointestinal: No problems Genitourinary: No problems Musculoskeletal: No problems Neurological: No problems Skin: No problems Vital Signs - Temperature Temperature: 98.3 F Temperature Source: Temporal Artery Scan - Pulse Right Brachial Pulse Rate: 106 Pulse Assessment Method: Automatic Cuff - Respirations Respiratory Rate: 16 Oxygen Delivery Method: Room Air O2 Sat by Pulse Oximetry: 98 - Blood Pressure Right Arm Blood Pressure: 114/71 Blood Pressure Mean: 85 Blood Pressure Source: Automatic Cuff Medical Screen Scoring (Pre) - Cervical Exam Dilation: Exam Deferred Effacement: Exam Deferred Membranes: Intact - Uterine Contractions Frequency: N/A Duration: N/A Intensity: N/A - Maternal Vital Signs Maternal Temperature: N/A Signs of Preeclampsia: N/A Maternal Respirations: N/A - Maternal Trauma Maternal Trauma: N/A - Assessment - Baby A Baseline FHR: 150 - Total Score - Baby A Total Score - Baby A: 0 - Total Score - Baby B Total Score - Baby B: 0 - Total Score - Baby C Total Score - Baby C: 0 - Level of Risk - Baby A Level of Risk - Baby A: Low (0-5) - Level of Risk - Baby B Level of Risk - Baby B: Low (0-5) - Level of Risk - Baby C Level of Risk - Baby C: Low (0-5) Physician Notification (Pre) - Physician Notified Physician Notified Date: 06/28/20 Physician Notified Time: 00:15 New Order Received: Yes (d/c instruct to call Dr. Hooks immediately for instruction and follow up) - Notification Comment Comment: Pt of Dr. Hooks history 30 wk delivery, current placenta previa, no contractions, doppler 140-159, no bleeding or leaking. Disposition - Disposition OB Disposition: Triage, Discharge to home Discharge Date: 06/28/20 Discharge Time: 00:20 I agree with the RN Medical Screening Exam: Yes Risk & Benefit of care provided described in d/c instruction: Yes Diagnosis: PAIN, UNSPECIFIED (Patient presents to triage with complaints of pain. Patient has care with a provider who does not have privileges here at Hospital. Her medical records are unavailable to us at this time. She reports that she is approximately 19-1/2 weeks . She also reports possible placenta previa. Patient is not having any bleeding. Evaluation shows she does have heart tones. There is no evidence of acute pain or any significant findings. Patient instructed to call provider this evening follow up with her tomorrow. She understands that in the future she is always welcome here at this hospital however since we do not have access to her medical records and her physician does not have privileges here we recommend that she follow up at her hospital and with her physician.)
== END 2020-06-28 00:20 | disposition home or self-care (01) ==
LOC: FBPOP 23:43
PROVIDERS: ATTEND Obstetrics & Gynecology
DX: O99.89 Other specified diseases and conditions complicating pregnancy, childbirth and the puerperium (principal); R52 Pain, unspecified; O99.332 Smoking (tobacco) complicating pregnancy, second trimester; F17.200 Nicotine dependence, unspecified, uncomplicated
CPT/HCPCS: 99213

== ENCOUNTER 2020-08-15 20:50 | Outpatient (CLI) | payer OTHER ==
[2020-08-15 21:08] VITALS: BP 126/67; RESP 16; TEMP 97
[2020-08-15 22:29] VITALS: PULSE 105
--- NOTE | 2020-09-07 07:48 | P.MSEPDOC ---
Presenting Problems - Arrival Data Date of Arrival on Unit: 08/15/20 Time of Arrival on Unit: 20:54 Mode of Transport: Ambulatory - Complaint OB-Reason for Admission/Chief Complaint: Possible Onset of Labor Comment: Pt states contractions stronger aound 1999, pain 7-10, every 7 minutes. Medical History - Information : 3 Para: 1 Term: 0 : 1 Abortions: Spontaneous or Elective: 1 Number of Living Children: 1 - Gestational Age Gestational Age by DOLORES (wks/days): 26 Weeks and 4 Days - History Complications: Prior , Smoker Review of Systems - Review of Systems Constitutional: No problems Breast: No problems ENT: No problems Cardiovascular: No problems Respiratory: No problems Gastrointestinal: No problems Genitourinary: No problems Musculoskeletal: No problems Neurological: No problems Skin: No problems Vital Signs - Temperature Temperature: 97.0 F Temperature Source: Temporal Artery Scan - Pulse Right Brachial Pulse Rate: 105 Pulse Assessment Method: Pulse Oximetry - Respirations Respiratory Rate: 16 Oxygen Delivery Method: Room Air O2 Sat by Pulse Oximetry: 98 - Blood Pressure Right Arm Blood Pressure: 126/67 Blood Pressure Mean: 86 Blood Pressure Source: Automatic Cuff Medical Screen Scoring (Pre) - Cervical Exam Dilation: 0 cm = 0 Effacement: Exam Deferred Membranes: Intact - Uterine Contractions Frequency: > 5 minutes apart = 1 Duration: N/A Intensity: N/A - Maternal Vital Signs Maternal Temperature: N/A Maternal Blood Pressure: N/A Signs of Preeclampsia: N/A Maternal Respirations: N/A - Maternal Trauma Maternal Trauma: N/A - Assessment - Baby A Baseline FHR: 145 Heart Rate - NICHD Category: Category I (Normal) = 0 Position: N/A Station: N/A - Total Score - Baby A Total Score - Baby A: 1 - Total Score - Baby B Total Score - Baby B: 1 - Total Score - Baby C Total Score - Baby C: 1 - Level of Risk - Baby A Level of Risk - Baby A: Low (0-5) - Level of Risk - Baby B Level of Risk - Baby B: Low (0-5) - Level of Risk - Baby C Level of Risk - Baby C: Low (0-5) Physician Notification (Pre) - Physician Notified Physician Notified Date: 08/15/20 Physician Notified Time: 21:23 New Order Received: Yes - Notification Comment Comment: Reported pt s/sx, vag exam, fhr, contractions and pulse. Orders to send FFN and orally hydrate. Physician Notification (Post) - Physician Notified Physician Notified Date: 08/15/20 Physician Notified Time: 22:18 Physician/Practitioner Notified:: Timo New Order Received: Yes - Notification Comment Comment: Reported negative FFN and pulse of 105. Pt stating she has SVT and a higher heart rate normally. Orders to d/c pt home, follow up with her Dr. Disposition - Disposition OB Disposition: Discharge to home, Written follow up instructions reviewed Discharge Date: 08/15/20 Discharge Time: 22:20 I agree with the RN Medical Screening Exam: Yes Risk & Benefit of care provided described in d/c instruction: Yes Diagnosis: contractions
== END 2020-08-15 22:20 | disposition home or self-care (01) ==
LOC: FBPOP 20:50
PROVIDERS: ATTEND Obstetrics & Gynecology
DX: O60.02 Preterm labor without delivery, second trimester (principal); Z3A.26 26 weeks gestation of pregnancy; O99.334 Smoking (tobacco) complicating childbirth
CPT/HCPCS: 82731; G0463; 99213

== ENCOUNTER 2020-09-13 15:33 | Outpatient (CLI) | payer OTHER ==
[2020-09-13 18:02] VITALS: BP 114/83; PULSE 109; RESP 16; TEMP 97.9
--- NOTE | 2020-09-14 00:45 | P.MSEPDOC ---
Presenting Problems - Arrival Data Date of Arrival on Unit: 09/13/20 Time of Arrival on Unit: 15:34 Mode of Transport: Ambulatory - Complaint OB-Reason for Admission/Chief Complaint: Other Comment: pt arrived c/o contractions that are 7-8 minutes apart and lasting 2 minutes long pt denuies any leaking of fluid Medical History - Information : 2 Para: 1 Term: 0 : 1 Abortions: Spontaneous or Elective: 0 Number of Living Children: 1 - Gestational Age Gestational Age by DOLORES (wks/days): 30 Weeks and 5 Days Review of Systems - Review of Systems Constitutional: No problems Breast: No problems ENT: No problems Cardiovascular: No problems Respiratory: No problems Gastrointestinal: No problems Genitourinary: No problems Musculoskeletal: No problems Neurological: No problems Skin: No problems Vital Signs - Temperature Temperature: 97.9 F Temperature Source: Oral - Pulse Right Brachial Pulse Rate: 109 Pulse Assessment Method: Automatic Cuff - Respirations Respiratory Rate: 16 Oxygen Delivery Method: Room Air O2 Sat by Pulse Oximetry: 97 - Blood Pressure Right Arm Blood Pressure: 114/83 Blood Pressure Mean: 93 Blood Pressure Source: Automatic Cuff Medical Screen Scoring (Pre) - Cervical Exam Dilation: 0 cm = 0 Membranes: Intact - Uterine Contractions Frequency: N/A Duration: N/A Intensity: N/A - Maternal Vital Signs Maternal Temperature: N/A Maternal Blood Pressure: N/A Signs of Preeclampsia: N/A Maternal Respirations: N/A - Maternal Trauma Maternal Trauma: N/A - Assessment - Baby A Baseline FHR: 140 Heart Rate - NICHD Category: Category I (Normal) = 0 NST: Reactive Position: N/A Station: N/A - Total Score - Baby A Total Score - Baby A: 0 - Total Score - Baby B Total Score - Baby B: 0 - Total Score - Baby C Total Score - Baby C: 0 - Level of Risk - Baby A Level of Risk - Baby A: Low (0-5) - Level of Risk - Baby B Level of Risk - Baby B: Low (0-5) - Level of Risk - Baby C Level of Risk - Baby C: Low (0-5) Physician Notification (Pre) - Physician Notified Physician Notified Date: 09/13/20 Physician Notified Time: 16:40 New Order Received: Yes - Notification Comment Comment: reactive nst no change in cervix. may discharge to home with instructions Disposition - Disposition OB Disposition: Discharge to home Discharge Date: 09/13/20 Discharge Time: 17:08 I agree with the RN Medical Screening Exam: Yes Risk & Benefit of care provided described in d/c instruction: Yes Diagnosis: FALSE LABOR BEFORE 37 COMPLETED WEEKS OF GEST, THIRD TRI
== END 2020-09-13 17:08 | disposition home or self-care (01) ==
LOC: FBPOP 15:33
PROVIDERS: ATTEND Obstetrics & Gynecology
DX: O47.03 False labor before 37 completed weeks of gestation, third trimester (principal); Z3A.30 30 weeks gestation of pregnancy
CPT/HCPCS: 59025; G0463; 99213

== ENCOUNTER 2020-10-12 12:39 | Outpatient (CLI) | payer OTHER ==
[2020-10-12 14:04] VITALS: BP 138/87; PULSE 126; RESP 18; TEMP 96.5
--- NOTE | 2021-01-05 07:52 | P.MSEPDOC ---
Presenting Problems - Arrival Data Date of Arrival on Unit: 10/12/20 Time of Arrival on Unit: 12:46 Mode of Transport: Ambulatory - Complaint OB-Reason for Admission/Chief Complaint: Vaginal Bleeding Comment: Pt presents to L&D with complains of a small amount of light pink fluid noted when wiping, did not have any blood noted on underwear. pt denies feeling any contractions. 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 Would like to deliver here if she can. Medical History - Information : 3 Para: 1 Term: 0 : 1 Abortions: Spontaneous or Elective: 1 Number of Living Children: 1 - Gestational Age Gestational Age by DOLORES (wks/days): 34 Weeks and 6 Days - History Complications: Smoker Comment: Hx SVT- had surgery in 2013, no meds Review of Systems - Review of Systems Constitutional: No problems Breast: No problems ENT: No problems Cardiovascular: No problems Respiratory: No problems Gastrointestinal: No problems Genitourinary: No problems Musculoskeletal: No problems Neurological: No problems Skin: No problems Comment: Cardiovascular- Hx SVT Vital Signs - Temperature Temperature: 96.5 F Temperature Source: Oral - Pulse Pulse Oximetery Pulse Rate: 126 Pulse Assessment Method: Automatic Cuff - Respirations Respiratory Rate: 18 Oxygen Delivery Method: Room Air O2 Sat by Pulse Oximetry: 97 - Blood Pressure Right Arm Blood Pressure: 138/87 Blood Pressure Mean: 104 Blood Pressure Source: Automatic Cuff - Comment Vital Signs Comment: B/P 123/100- changed blood pressure cuff to larger size. 125/78. 123/77 Medical Screen Scoring (Pre) - Cervical Exam Dilation: 1-3 cm = 1 Membranes: Intact - Uterine Contractions Frequency: N/A - Maternal Vital Signs Maternal Temperature: N/A Maternal Blood Pressure: N/A Signs of Preeclampsia: N/A Maternal Respirations: N/A - Maternal Trauma Maternal Trauma: N/A - Assessment - Baby A Baseline FHR: 150 Heart Rate - NICHD Category: Category I (Normal) = 0 NST: Reactive Position: N/A - Total Score - Baby A Total Score - Baby A: 1 - Total Score - Baby B Total Score - Baby B: 1 - Total Score - Baby C Total Score - Baby C: 1 - Level of Risk - Baby A Level of Risk - Baby A: Low (0-5) - Level of Risk - Baby B Level of Risk - Baby B: Low (0-5) - Level of Risk - Baby C Level of Risk - Baby C: Low (0-5) - Pain Assessment Pain Scale Used: Numeric (1 - 10) Pain Intensity: 0 Physician Notification (Pre) - Physician Notified Physician Notified Date: 10/12/20 Physician Notified Time: 13:51 New Order Received: Yes Disposition - Disposition OB Disposition: Physician follow up in office, Discharge to home, Written follow up instructions reviewed Discharge Date: 10/12/20 Discharge Time: 14:10 I agree with the RN Medical Screening Exam: Yes Case reviewed; plan agreed upon as documented in EMR&OBIX.: Yes Comments: Patient was neither seen nor examined by me. Diagnosis: SPOTTING COMPLICATING , THIRD TRIMESTER
== END 2020-10-12 14:10 | disposition home or self-care (01) ==
LOC: FBPOP 12:39
PROVIDERS: ATTEND Obstetrics & Gynecology
DX: O26.853 Spotting complicating pregnancy, third trimester (principal); Z3A.34 34 weeks gestation of pregnancy
CPT/HCPCS: 59025; G0463; 99213

== ENCOUNTER 2020-12-11 22:33 | Emergency (ER) | payer OTHER ==
[2020-12-11] MEDS ORDERED: AMOXIC-POT CLAV 875MG STARTER PACK 2 TAB BTL PO STA ×2 (22:50→23:04)
[2020-12-11] MEDS ORDERED: KETOROLAC 15 MG/ML 1 ML VIAL IM STA ×3 (22:50→23:07)
[2020-12-11] MEDS ORDERED: ACET/COD 300 MG/30 MG STARTER PACK 6 TAB BTL PO STA ×3 (22:50→23:21)
--- NOTE | 2020-12-11 22:51 | ED ---
General Adult HPI - General Chief complaint: Dental/Oral Stated complaint: tooth pain Time Seen by Provider: 12/11/20 22:40 Source: patient Mode of arrival: ambulatory Limitations: no limitations - History of Present Illness Initial comments: 20-year-old female patient presents to the emergency department today for evaluation of right lower dental pain. Patient states she's been having pain in his tooth for the last 3 days. Patient states the tooth has been bad for quite some time that she recently delivered a baby. States she has been taking ibup rofen at home without relief. Denies any fever or chills. Denies facial swelling. Denies any nausea or vomiting. States the pain is radiating up in her face and down into her neck. Patient denies any recent rash, cough, shortness of breath, chest pain, abdominal pain, diarrhea, constipation, back pain, numbness, tingling, dizziness, weakness, hematuria, dysuria, urinary urgency, urinary frequency, headache, visual changes, or any other complaints. - Related Data Home Medications Medication Instructions Recorded Confirmed Pnv,Calcium 72/Iron/Folic Acid 1 tab PO DAILY 06/16/20 10/12/20 [ Plus Tablet] Previous Rx's Medication Instructions Recorded Amoxic-Pot Clav 875-125Mg 1 tab PO Q12HR #20 tablet 12/11/20 [Augmentin 875-125] Allergies Allergy/AdvReac Type Severity Reaction Status Date / Time morphine AdvReac Rash/Hives Verified 10/12/20 13:15 Review of Systems ROS Statement: Those systems with pertinent positive or pertinent negative responses have been documented in the HPI. ROS Other: All systems not noted in ROS Statement are negative. Past Medical History Past Medical History: Asthma Additional Past Medical History / Comment(s): pt reports hx of SVT History of Any Multi-Drug Resistant Organisms: None Reported Past Surgical History: Ablation, Cholecystectomy, Heart Catheterization Additional Past Surgical History / Comment(s): heart ablation 12/2015 d and c Past Psychological History: Anxiety Smoking Status: Current every day smoker Past Alcohol Use History: None Reported Past Drug Use History: None Reported General Exam Limitations: no limitations General appearance: alert, in no apparent distress, other (This is a well- developed, well-nourished adult female patient in no acute distress. Vital signs upon presentation are temperature 97.9F, pulse 81, respirations 22, blood pressure 167/98, pulse ox 100% on room air.) Eye exam: Present: normal appearance, PERRL, EOMI. Absent: scleral icterus, conjunctival injection, periorbital swelling ENT exam: Present: normal oropharynx, mucous membranes moist, other (There is dental caries and decayed tooth #32. Mild surrounding gingival erythema. No evidence of drainable abscess.). Absent: normal exam Neck exam: Present: normal inspection. Absent: tenderness, meningismus, lymphadenopathy Respiratory exam: Present: normal lung sounds bilaterally. Absent: respiratory distress, wheezes, rales, rhonchi, stridor Cardiovascular Exam: Present: regular rate, normal rhythm, normal heart sounds. Absent: systolic murmur, diastolic murmur, rubs, gallop, clicks Neurological exam: Present: alert, oriented X3, CN II-XII intact Psychiatric exam: Present: normal affect, normal mood Skin exam: Present: warm, dry, intact, normal color. Absent: rash Course Vital Signs 12/11/20 22:35 Temperature 97.9 F Pulse Rate 81 Respiratory 22 Rate Blood Pressure 167/98 O2 Sat by Pulse 100 Oximetry Medical Decision Making - Medical Decision Making 20-year-old female patient presents to the emergency department today for evaluation of right lower dental pain that started 3 days ago. Physical examination did reveal dental caries with extensive decay noted to tooth #32. Mild surrounding gingival erythema. No evidence of drainable abscess here she is afebrile, vital signs. Blood pressures mildly elevated felt due to pain. She is given pain medication doses here in the emergency department. She is sw itched from amoxicillin to Augmentin. She is instructed to follow up with dentistry as soon as possible. She is instructed to follow-up with her primary care physician for recheck in 1-2 days. Return parameters were discussed in detail. She verbalizes understanding and agrees with this plan. Disposition Clinical Impression: Pain, dental, Dental caries Disposition: HOME SELF-CARE Condition: Good Instructions (If sedation given, give patient instructions): Toothache (ED) Additional Instructions: Follow-up with the dentist for recheck as soon as possible. Return to the emergency department for any new, worsening, or concerning symptoms. Prescriptions: Amoxic-Pot Clav 875-125Mg [Augmentin 875-125] 1 tab PO Q12HR #20 tablet Is patient prescribed a controlled substance at d/c from ED?: No Referrals: Armando Chow MD [Primary Care Provider] - 1-2 days Time of Disposition: 22:51
[2020-12-11 23:38] VITALS: BP 140/70; PULSE 87; RESP 16; TEMP 97.8
== END 2020-12-11 23:35 | disposition home or self-care (01) ==
LOC: EC 22:33
DX: K04.7 Periapical abscess without sinus (principal); K08.89 Other specified disorders of teeth and supporting structures; F17.200 Nicotine dependence, unspecified, uncomplicated; Z88.5 Allergy status to narcotic agent
CPT/HCPCS: 99282; 96372; J1885

== ENCOUNTER 2021-07-19 08:08 | Emergency (ER) | payer OTHER ==
[2021-07-19 08:19] VITALS: BP 126/88; PULSE 99; RESP 18; TEMP 97.7
[2021-07-19] MEDS ORDERED: IBUPROFEN 600 MG TAB PO STA (08:38)
--- NOTE | 2021-07-19 09:06 | ED ---
Lower Extremity Injury HPI - General Chief Complaint: Extremity Injury, Lower Stated Complaint: foot injury Time Seen by Provider: 07/19/21 08:21 Source: patient, family Mode of arrival: ambulatory Limitations: no limitations - History of Present Illness Initial Comments: Patient is a 21-year-old female presenting to the emergency Department with complaints of left foot and left ankle pain after she slipped on a few wooden stairs. She states that she was heading outside when she is not sure what happened, she just slipped down about 4-5 wooden stairs. She did not hit her head, no neck pain, no chest pain or abdominal pain. She states her only complaint from this fall is only her left foot pain. She has had a previous fracture of her left ankle. She has no hardware in there. She describes the pain is mostly on the top of her foot. She has no further complaints today. - Related Data Home Medications Medication Instructions Recorded Confirmed Pnv,Calcium 72/Iron/Folic Acid 1 tab PO DAILY 06/16/20 10/12/20 [ Plus Tablet] Previous Rx's Medication Instructions Recorded Amoxic-Pot Clav 875-125Mg 1 tab PO Q12HR #20 tablet 12/11/20 [Augmentin 875-125] Allergies Allergy/AdvReac Type Severity Reaction Status Date / Time amoxicillin Allergy Rash/Hives Verified 07/19/21 08:19 morphine AdvReac Rash/Hives Verified 10/12/20 13:15 Review of Systems ROS Statement: Those systems with pertinent positive or pertinent negative responses have been documented in the HPI. ROS Other: All systems not noted in ROS Statement are negative. Past Medical History Past Medical History: Asthma Additional Past Medical History / Comment(s): pt reports hx of SVT History of Any Multi-Drug Resistant Organisms: None Reported Past Surgical History: Ablation, Cholecystectomy, Heart Catheterization Additional Past Surgical History / Comment(s): heart ablation 12/2015 d and c Past Psychological History: Anxiety Smoking Status: Current every day smoker Past Alcohol Use History: None Reported Past Drug Use History: None Reported General Exam - General Exam Comments Initial Comments: GENERAL: Patient is well-developed and well-nourished. Patient is nontoxic and in no acute distress. HEAD: Atraumatic, normocephalic. EYES: Pupils equal round and reactive to light, extraocular movements intact, sclera anicteric, conjunctiva are normal. Eyelids were unremarkable. ENT: Moist mucous membranes. NECK: Normal range of motion, supple without lymphadenopathy or JVD. LUNGS: Unlabored respirations. Breath sounds clear to auscultation bilaterally and equal. No wheezes rales or rhonchi. HEART: Regular rate and rhythm without murmurs, rubs or gallops. MUSCULOSKELETAL: Patient has decreased active range of motion of her left foot and ankle secondary to pain. She has no significant swelling, no obvious deformity of the left ankle or left foot. She is point tender at the distal end of her left fifth metacarpal. She is neurovascular intact. She does have pain at palpation of the left lateral malleolus and the entire anterior left foot. No clubbing or cyanosis. NEUROLOGICAL: Patient is alert and oriented x 3. SKIN: Warm, Dry, normal turgor, no rashes or lesions noted. Limitations: no limitations Course Vital Signs 07/19/21 08:15 Temperature 97.7 F Pulse Rate 99 Respiratory 18 Rate Blood Pressure 126/88 O2 Sat by Pulse 99 Oximetry Medical Decision Making - Medical Decision Making Patient is a 21-year-old female here with left foot and ankle pain after she slipped down about 4-5 wooden stairs just prior to arrival. She did not hit her head, she has no other complaints from the fall except for the left foot and ankle pain. She has had a previous fracture of the left ankle. No hardware present. His deformity, no swelling. X-ray of the ankle show no acute fractures dislocations, x-ray of the left foot reveal a small cortical defect in the neck of the fifth metacarpal distally. There is most likely a nondisplaced fracture present. She does have a little bit of soft tissue swelling in the same area and tender to the area. I discussed these findings with her. Patient was given Ubaldo wrap for support, I did recommend supportive shoe. She is agreeable to this. Patient will follow up with orthopedics. She'll take ibuprofen for discomfort, ice the area. She is stable for discharge. Case discussed with Dr. Haas. Disposition Clinical Impression: Nondisplaced fracture of fifth left metatarsal bone Disposition: HOME SELF-CARE Condition: Stable Instructions (If sedation given, give patient instructions): Foot Fracture in Adults (ED) Additional Instructions: Please return to the Emergency Department if symptoms worsen or any other concerns. Recommends supportive shoe or boot as discussed. May use Ubaldo wrap for support, ibuprofen and ice for swelling control. Follow up with orthopedics. Is patient prescribed a controlled substance at d/c from ED?: No Referrals: Armando Chow MD [Primary Care Provider] - 1-2 days Zion Jovel DO [Doctor of Osteopathic Medicine] - 1-2 days Time of Disposition: 09:46
--- NOTE | 2021-07-19 09:28 | XR ---
EXAMINATION TYPE: XR ankle complete LT DATE OF EXAM: 07/19/2021 COMPARISON: NONE HISTORY: Pain TECHNIQUE: 3 views of the left ankle are submitted for evaluation. FINDINGS: There is no evidence for fracture or dislocation. Ankle mortise is intact. Soft tissues are within normal limits. IMPRESSION: 1. No evidence for acute fracture.
--- NOTE | 2021-07-19 09:30 | XR ---
EXAMINATION TYPE: XR foot complete LT DATE OF EXAM: 07/19/2021 CLINICAL HISTORY: pain TECHNIQUE: Frontal, lateral and oblique images of the left foot are obtained. COMPARISON: None. FINDINGS: Vague cortical defect in the neck region of the fifth metacarpal distally. Nondisplaced fra cture is suspected. Adjacent soft tissue swelling. The joint spaces appear within normal limits. IMPRESSION: As above ICD 10 closed FRACTURE, INITIAL EVALUATION
== END 2021-07-19 10:09 | disposition home or self-care (01) ==
LOC: EC 08:08
DX: S92.355A Nondisplaced fracture of fifth metatarsal bone, left foot, initial encounter for closed fracture (principal); J45.909 Unspecified asthma, uncomplicated; F17.200 Nicotine dependence, unspecified, uncomplicated; Z88.5 Allergy status to narcotic agent; Z88.0 Allergy status to penicillin; W10.8XXA Fall (on) (from) other stairs and steps, initial encounter
CPT/HCPCS: 99283

== ENCOUNTER 2021-08-21 09:51 | Emergency (ER) | payer OTHER ==
[2021-08-21 10:20] VITALS: BP 118/67; PULSE 87; RESP 18; TEMP 97.8
--- NOTE | 2021-08-21 11:18 | ED ---
Abdominal Pain HPI - General Chief Complaint: Abdominal Pain Stated Complaint: abd pain Time Seen by Provider: 08/21/21 11:07 Source: patient Mode of arrival: wheelchair Limitations: no limitations - History of Present Illness Initial Comments: Patient is a 21-year-old female presenting with abdominal pain starting at 8:30 this morning. Patient reports point tenderness above the epigastric region, some point tenderness over right lower quadrant. Patient reports normal bowel movements and urination. Patient denies chance of being . Patient denies any nausea vomiting reporting 7 out of 10 pain with movement. - Related Data Home Medications Medication Instructions Recorded Confirmed No Known Home Medications 08/21/21 08/21/21 Allergies Allergy/AdvReac Type Severity Reaction Status Date / Time amoxicillin Allergy Rash/Hives Verified 08/21/21 11:52 morphine AdvReac Rash/Hives Verified 08/21/21 11:52 Review of Systems ROS Statement: Those systems with pertinent positive or pertinent negative responses have been documented in the HPI. ROS Other: All systems not noted in ROS Statement are negative. Past Medical History Past Medical History: Asthma Additional Past Medical History / Comment(s): pt reports hx of SVT History of Any Multi-Drug Resistant Organisms: None Reported Past Surgical History: Ablation, Cholecystectomy, Heart Catheterization Additional Past Surgical History / Comment(s): heart ablation 12/2015 d and c Past Psychological History: Anxiety Smoking Status: Former smoker Past Alcohol Use History: Occasional Past Drug Use History: None Reported, Marijuana General Exam Limitations: no limitations General appearance: alert, in distress Head exam: Present: atraumatic, normocephalic, normal inspection Eye exam: Present: normal appearance, PERRL, EOMI. Absent: scleral icterus, conjunctival injection, periorbital swelling ENT exam: Present: normal exam, mucous membranes moist Neck exam: Present: normal inspection. Absent: tenderness, meningismus, lymphadenopathy Respiratory exam: Present: normal lung sounds bilaterally. Absent: respiratory distress, wheezes, rales, rhonchi, stridor Cardiovascular Exam: Present: regular rate, normal rhythm, normal heart sounds. Absent: systolic murmur, diastolic murmur, rubs, gallop, clicks GI/Abdominal exam: Present: soft, tenderness (With pain), hyperactive bowel sounds Rectal exam: Present: deferred External exam: Present: normal external exam Speculum exam: Present: normal speculum exam By manual exam: Present: normal by manual exam Extremities exam: Present: normal inspection, full ROM, normal capillary refill. Absent: tenderness, pedal edema, joint swelling, calf tenderness Back exam: Present: normal inspection Neurological exam: Present: alert, oriented X3, CN II-XII intact Psychiatric exam: Present: normal affect, normal mood Skin exam: Present: warm, dry, intact, normal color. Absent: rash Course Vital Signs 08/21/21 10:18 Temperature 97.8 F Pulse Rate 87 Respiratory 18 Rate Blood Pressure 118/67 O2 Sat by Pulse 99 Oximetry Medical Decision Making - Medical Decision Making 21-year-old presented from chief complaint of abdominal discomfort. Patient CT does not reveal any acute abnormality patient does have evidence of urinary tract infection was given Rocephin we discharge on Bactrim for his daily for 7 days. Return parameters were discussed. - Lab Data Result diagrams: 08/21/21 11:43 08/21/21 11:43 Lab Results 08/21/21 08/21/21 08/21/21 Range/Units 11:10 11:10 11:43 WBC 11.5 H (3.8-10.6) k/uL RBC 5.05 (3.80-5.40) m/uL Hgb 11.8 (11.4-16.0) gm/dL Hct 38.7 (34.0-46.0) % MCV 76.6 L (80.0-100.0) fL MCH 23.3 L (25.0-35.0) pg MCHC 30.4 L (31.0-37.0) g/dL RDW 17.3 H (11.5-15.5) % Plt Count 366 (150-450) k/uL MPV 7.4 Neutrophils % 68 % Lymphocytes % 24 % Monocytes % 4 % Eosinophils % 2 % Basophils % 1 % Neutrophils # 7.9 H (1.3-7.7) k/uL Lymphocytes # 2.7 (1.0-4.8) k/uL Monocytes # 0.5 (0-1.0) k/uL Eosinophils # 0.2 (0-0.7) k/uL Basophils # 0.1 (0-0.2) k/uL Hypochromasia Slight Anisocytosis Slight Microcytosis Slight Sodium (137-145) mmol/L Potassium (3.5-5.1) mmol/L Chloride (98-107) mmol/L Carbon Dioxide (22-30) mmol/L Anion Gap mmol/L BUN (7-17) mg/dL Creatinine (0.52-1.04) mg/dL Est GFR (CKD-EPI)AfAm (>60 ml/min/1.73 sqM) Est GFR (CKD-EPI)NonAf (>60 ml/min/1.73 sqM) Glucose (74-99) mg/dL Calcium (8.4-10.2) mg/dL Total Bilirubin (0.2-1.3) mg/dL AST (14-36) U/L ALT (4-34) U/L Alkaline Phosphatase (38-126) U/L Total Protein (6.3-8.2) g/dL Albumin (3.5-5.0) g/dL Amylase (30-110) U/L Lipase (23-300) U/L Urine Color Yellow Urine Appearance Cloudy H (Clear) Urine pH 6.0 (5.0-8.0) Ur Specific [place] 1.022 (1.001-1.035) Urine Protein Negative (Negative) Urine Glucose (UA) Negative (Negative) Urine Ketones Negative (Negative) Urine Blood Negative (Negative) Urine Nitrite Negative (Negative) Urine Bilirubin Negative (Negative) Urine Urobilinogen <2.0 (<2.0) mg/dL Ur Leukocyte Esterase Moderate H (Negative) Urine RBC 5 (0-5) /hpf Urine WBC 19 H (0-5) /hpf Ur Squamous Epith Cells 3 (0-4) /hpf Urine Bacteria Rare H (None) /hpf Urine Mucus Few H (None) /hpf Urine HCG, Qual Not Detected (Not Detectd) 08/21/21 Range/Units 11:43 WBC (3.8-10.6) k/uL RBC (3.80-5.40) m/uL Hgb (11.4-16.0) gm/dL Hct (34.0-46.0) % MCV (80.0-100.0) fL MCH (25.0-35.0) pg MCHC (31.0-37.0) g/dL RDW (11.5-15.5) % Plt Count (150-450) k/uL MPV Neutrophils % % Lymphocytes % % Monocytes % % Eosinophils % % Basophils % % Neutrophils # (1.3-7.7) k/uL Lymphocytes # (1.0-4.8) k/uL Monocytes # (0-1.0) k/uL Eosinophils # (0-0.7) k/uL Basophils # (0-0.2) k/uL Hypochromasia Anisocytosis Microcytosis Sodium 140 (137-145) mmol/L Potassium 4.7 (3.5-5.1) mmol/L Chloride 108 H (98-107) mmol/L Carbon Dioxide 25 (22-30) mmol/L Anion Gap 7 mmol/L BUN 10 (7-17) mg/dL Creatinine 0.57 (0.52-1.04) mg/dL Est GFR (CKD-EPI)AfAm >90 (>60 ml/min/1.73 sqM) Est GFR (CKD-EPI)NonAf >90 (>60 ml/min/1.73 sqM) Glucose 91 (74-99) mg/dL Calcium 9.8 (8.4-10.2) mg/dL Total Bilirubin 0.4 (0.2-1.3) mg/dL AST 27 (14-36) U/L ALT 13 (4-34) U/L Alkaline Phosphatase 112 (38-126) U/L Total Protein 7.1 (6.3-8.2) g/dL Albumin 4.1 (3.5-5.0) g/dL Amylase 73 (30-110) U/L Lipase 105 (23-300) U/L Urine Color Urine Appearance (Clear) Urine pH (5.0-8.0) Ur Specific [place] (1.001-1.035) Urine Protein (Negative) Urine Glucose (UA) (Negative) Urine Ketones (Negative) Urine Blood (Negative) Urine Nitrite (Negative) Urine Bilirubin (Negative) Urine Urobilinogen (<2.0) mg/dL Ur Leukocyte Esterase (Negative) Urine RBC (0-5) /hpf Urine WBC (0-5) /hpf Ur Squamous Epith Cells (0-4) /hpf Urine Bacteria (None) /hpf Urine Mucus (None) /hpf Urine HCG, Qual (Not Detectd) Disposition Clinical Impression: Abdominal pain, UTI (urinary tract infection) Disposition: HOME SELF-CARE Condition: Stable Instructions (If sedation given, give patient instructions): Urinary Tract Inf ection in Women (ED) Additional Instructions: Please return to the Emergency Department if symptoms worsen or any other concerns. Is patient prescribed a controlled substance at d/c from ED?: No Referrals: Armando Chow MD [Primary Care Provider] - 1-2 days Time of Disposition: 12:25
[2021-08-21] MEDS ORDERED: KETOROLAC 15 MG/ML 1 ML VIAL IVP STA (11:22)
[2021-08-21] MEDS ORDERED: SODIUM CHLORIDE 0.9% 1,000 ML IV STA (11:22)
[2021-08-21 11:55] LABS: Appearance,Urine Cloudy (Clear); Bacteria,Urine Rare /hpf; Bilirubin,Urine Negative (Negative); Blood,Urine Negative (Negative); Color,Urine Yellow; Glucose,Urine (UA) Negative (Negative); Ketones,Urine Negative (Negative); Leukocyte Esterase,Urine Moderate (Negative); Mucus,Urine Few /hpf; Nitrite,Urine Negative (Negative); Protein,Urine Negative (Negative); RBC,Urine 5 /hpf (0-5); Specific Gravity,Urine 1.022 (1.001-1.035); Squamous Epithelial Cell,Urine 3 /hpf (0-4); Urobilinogen,Urine <2.0 mg/dL (<2.0); WBC,Urine 19 /hpf (0-5)
[2021-08-21] MEDS ORDERED: diphenhydrAMINE 50 MG/ML 1 ML VIAL IVP STA (11:58)
[2021-08-21 12:01] LABS: Anisocytosis Slight; Basophils # (A) 0.1 k/uL (0-0.2); Basophils % (A) 1 %; Eosinophils # (A) 0.2 k/uL (0-0.7); Eosinophils % (A) 2 %; HCT 38.7 % (34.0-46.0); HGB 11.8 gm/dL (11.4-16.0); Hypochromasia Slight; Lymphocytes # (A) 2.7 k/uL (1.0-4.8); Lymphocytes % (A) 24 %; MCH 23.3 pg (25.0-35.0); MCHC 30.4 g/dL (31.0-37.0); MCV 76.6 fL (80.0-100.0); Mean Platelet Volume 7.4; Microcytosis Slight; Monocytes # (A) 0.5 k/uL (0-1.0); Monocytes % (A) 4 %; Neutrophils # (A) 7.9 k/uL (1.3-7.7); Neutrophils % (A) 68 %; Platelet Count 366 k/uL (150-450); RBC 5.05 m/uL (3.80-5.40); RDW 17.3 % (11.5-15.5); WBC 11.5 k/uL (3.8-10.6)
[2021-08-21 12:16] LABS: ALT 13 U/L (4-34); AST 27 U/L (14-36); African American GFR (CKD) >90 (>60 ml/min/1.73 sqM); Albumin 4.1 g/dL (3.5-5.0); Alkaline Phosphatase 112 U/L (38-126); Amylase 73 U/L (30-110); Anion Gap 7 mmol/L; Blood Urea Nitrogen 10 mg/dL (7-17); Calcium 9.8 mg/dL (8.4-10.2); Carbon Dioxide 25 mmol/L (22-30); Chloride 108 mmol/L (98-107); Glucose 91 mg/dL (74-99); Lipase 105 U/L (23-300); Non-African American GFR(CKD) >90 (>60 ml/min/1.73 sqM); Potassium 4.7 mmol/L (3.5-5.1); Sodium 140 mmol/L (137-145); Total Bilirubin 0.4 mg/dL (0.2-1.3); Total Protein 7.1 g/dL (6.3-8.2)
--- NOTE | 2021-08-21 12:22 | CT ---
EXAMINATION TYPE: CT abdomen pelvis wo con DATE OF EXAM: 08/21/2021 HISTORY: Abdominal pain, Right and center epigastric level started today CT DLP: 635.8 mGycm. Automated Exposure Control for Dose Reduction was Utilized. TECHNIQUE: CT scan of the abdomen and pelvis is performed without oral or IV contrast. COMPARISON: Most recent CT December 16, 2019 FINDINGS: Within the limitations of a non-contrast study, the following observations are made. LUNG BASES: No significant abnormality is appreciated. LIVER/GB: Cholecystectomy clips. PANCREAS: No significant abnormality is seen. SPLEEN: No significant abnormality is seen. ADRENALS: No significant abnormality is seen. KIDNEYS: No renal stones or hydronephrosis is seen bilaterally. BOWEL: Suboptimal evaluation without enteric contrast. No suspicious dilatation. Appendix remains wit hin normal limits ascending from cecum. GENITAL ORGANS: Retroverted uterus. Normal size ovaries LYMPH NODES: No greater than 1cm abdominal or pelvic lymph nodes are appreciated. OSSEOUS STRUCTURES: No significant abnormality is seen. OTHER: Displaced cholecystectomy clips into the pelvis anteriorly image 64 is redemonstrated left of midline. IMPRESSION: No new or acute findings evident on this noncontrast CT.
[2021-08-21] MEDS ORDERED: cefTRIAXone IN SWFI 1,000 MG/10 ML SYRINGE IVP STA (12:23)
== END 2021-08-21 13:01 | disposition home or self-care (01) ==
LOC: EC 09:51
DX: N39.0 Urinary tract infection, site not specified (principal); R10.13 Epigastric pain; J45.909 Unspecified asthma, uncomplicated; Z87.891 Personal history of nicotine dependence; Z90.49 Acquired absence of other specified parts of digestive tract; Z88.0 Allergy status to penicillin; Z88.5 Allergy status to narcotic agent
CPT/HCPCS: 36415; 80053; 82150; 83690; 85025; 81001; 81025; 87086; 74176; 99284; 96374; 96375; 96361; J0696; J1885

== ENCOUNTER 2021-10-11 23:01 | Emergency (ER) | payer OTHER ==
[2021-10-11 23:39] VITALS: BP 117/75; PULSE 100; RESP 20; TEMP 98.6
--- NOTE | 2021-10-12 00:54 | ED ---
General Adult HPI - General Chief complaint: Upper Respiratory Infection Stated complaint: covid exposure Time Seen by Provider: 10/12/21 00:45 Source: patient Mode of arrival: ambulatory Limitations: no limitations - History of Present Illness Initial comments: 21-year-old female patient presents to the emergency department requesting testing for COVID-19 due to recent exposure. States that her mother and child both tested positive have been sick. She denies any symptoms currently. States she did have Covid 5 weeks ago. She denies chance of . Denies any other concerns or symptoms. - Related Data Home Medications Medication Instructions Recorded Confirmed No Known Home Medications 08/21/21 08/21/21 Allergies Allergy/AdvReac Type Severity Reaction Status Date / Time amoxicillin Allergy Rash/Hives Verified 10/11/21 23:39 tomato Allergy Unknown Verified 10/11/21 23:40 morphine AdvReac Rash/Hives Verified 10/11/21 23:39 Review of Systems ROS Statement: Those systems with pertinent positive or pertinent negative responses have been documented in the HPI. ROS Other: All systems not noted in ROS Statement are negative. Past Medical History Past Medical History: Asthma Additional Past Medical History / Comment(s): pt reports hx of SVT History of Any Multi-Drug Resistant Organisms: None Reported Past Surgical History: Ablation, Cholecystectomy, Heart Catheterization Additional Past Surgical History / Comment(s): heart ablation 12/2015 d and c Past Psychological History: Anxiety Smoking Status: Former smoker Past Alcohol Use History: Occasional Past Drug Use History: None Reported, Marijuana General Exam Limitations: no limitations General appearance: alert, in no apparent distress ENT exam: Present: normal exam, normal oropharynx, mucous membranes moist Respiratory exam: Present: normal lung sounds bilaterally. Absent: respiratory distress, wheezes, rales, rhonchi, stridor Cardiovascular Exam: Present: regular rate, normal rhythm, normal heart sounds. Absent: systolic murmur, diastolic murmur, rubs, gallop, clicks Neurological exam: Present: alert, oriented X3, CN II-XII intact Psychiatric exam: Present: normal affect, normal mood Skin exam: Present: warm, dry, intact, normal color. Absent: rash Course Vital Signs 10/11/21 23:37 Temperature 98.6 F Pulse Rate 100 Respiratory 20 Rate Blood Pressure 117/75 O2 Sat by Pulse 99 Oximetry Medical Decision Making - Medical Decision Making 21-year-old female patient presented requesting testing for COVID-19 due to exposure. She is not currently symptomatic. She tested negative. She is discharged up with her doctor as needed. Return parameters were discussed in detail. My attending is Dr. Drake. - Lab Data Lab Results 10/11/21 Range/Units 23:51 Coronavirus (PCR) Not Detected (Not Detectd) Disposition Clinical Impression: Exposure to COVID-19 virus Disposition: HOME SELF-CARE Condition: Good Additional Instructions: You tested negative for today for COVID. Follow up with your primary care physician as needed. Return for any new, worsening, or concerning symptoms. Is patient prescribed a controlled substance at d/c from ED?: No Referrals: Armando Chow MD [Primary Care Provider] - 1-2 days Time of Disposition: 00:54
== END 2021-10-12 01:03 | disposition home or self-care (01) ==
LOC: EC 23:01
DX: Z20.822 Contact with and (suspected) exposure to COVID-19 (principal); J45.909 Unspecified asthma, uncomplicated; Z87.891 Personal history of nicotine dependence; Z88.0 Allergy status to penicillin; Z91.018 Allergy to other foods; Z88.5 Allergy status to narcotic agent; Z86.16 Personal history of COVID-19
CPT/HCPCS: 87635; 99283

== ENCOUNTER 2022-09-04 06:52 | Emergency (ER) | payer OTHER ==
[2022-09-04 07:33] VITALS: RESP 16; TEMP 98.4
--- NOTE | 2022-09-04 08:05 | ED ---
General Adult HPI - General Chief complaint: Recheck/Abnormal Lab/Rx Stated complaint: female genital issues Time Seen by Provider: 09/04/22 07:34 Source: patient, RN notes reviewed, old records reviewed Mode of arrival: ambulatory Limitations: no limitations - History of Present Illness Initial comments: 22-year-old female currently approximately 9 weeks presenting with dysuria and urinary frequency. Patient denies vaginal bleeding or vaginal discharge. She denies abdominal pain. She states she has significant pain in her vagina when she urinates. No fever. She has not had a formal evaluation by obstetrics for this . - Related Data Previous Rx's Medication Instructions Recorded Cephalexin [Keflex] 500 mg PO TID 10 Days #30 cap 09/04/22 Allergies Allergy/AdvReac Type Severity Reaction Status Date / Time amoxicillin Allergy Rash/Hives Verified 01/03/22 14:26 tomato Allergy Unknown Verified 01/03/22 14:26 morphine AdvReac Rash/Hives Verified 01/03/22 14:26 Review of Systems ROS Statement: Those systems with pertinent positive or pertinent negative responses have been documented in the HPI. ROS Other: All systems not noted in ROS Statement are negative. Past Medical History Past Medical History: Asthma Additional Past Medical History / Comment(s): pt reports hx of SVT History of Any Multi-Drug Resistant Organisms: None Reported Past Surgical History: Ablation, Cholecystectomy, Heart Catheterization Additional Past Surgical History / Comment(s): heart ablation 12/2015 d and c Past Psychological History: Anxiety Smoking Status: Former smoker Past Alcohol Use History: Occasional Past Drug Use History: Marijuana General Exam Limitations: no limitations General appearance: alert, in no apparent distress Head exam: Present: atraumatic, normocephalic Eye exam: Present: normal appearance, PERRL ENT exam: Present: normal exam Neck exam: Present: normal inspection. Absent: tenderness, meningismus Respiratory exam: Present: normal lung sounds bilaterally. Absent: respiratory distress, wheezes Cardiovascular Exam: Present: regular rate, normal rhythm GI/Abdominal exam: Present: soft. Absent: distended, tenderness, guarding Extremities exam: Present: normal inspection, normal capillary refill Neurological exam: Present: alert, oriented X3, CN II-XII intact. Absent: motor sensory deficit Psychiatric exam: Present: normal affect, normal mood Skin exam: Present: warm, dry, intact. Absent: cyanosis, diaphoretic Course Vital Signs 10/11/22 07:26 Temperature 98.4 F Pulse Rate 98 Respiratory 16 Rate Blood Pressure 116/78 O2 Sat by Pulse 99 Oximetry Medical Decision Making - Medical Decision Making 22-year-old female presenting with urinary symptoms, she is approximately 9 weeks . She has no abdominal pain. No vaginal bleeding. No vaginal discharge. She has dysuria and urinary frequency. No fever. No vomiting or flank pain. Urinalysis does reveal 57 red cells, greater than 182 white cells, turbid with bacteria. Culture is sent. Patient started on antibiotics. She's given strict return parameters including abdominal pain, flank pain, fever, vomiting, or vaginal bleeding. She has an appointment with obstetrics in less than one week. - Lab Data Lab Results 09/04/22 09/04/22 Range/Units 08:37 08:37 Urine Color Yellow Urine Appearance Turbid H (Clear) Urine pH 6.0 (5.0-8.0) Ur Specific [place] 1.024 (1.001-1.035) Urine Protein 2+ H (Negative) Urine Glucose (UA) Negative (Negative) Urine Ketones Negative (Negative) Urine Blood Small H (Negative) Urine Nitrite Negative (Negative) Urine Bilirubin Negative (Negative) Urine Urobilinogen 2.0 (<2.0) mg/dL Ur Leukocyte Esterase Large H (Negative) Urine RBC 57 H (0-5) /hpf Urine WBC >182 H (0-5) /hpf Ur Squamous Epith Cells 131 H (0-4) /hpf Urine Bacteria Occasional H (None) /hpf Urine Mucus Many H (None) /hpf Urine HCG, Qual Detected (Not Detectd) Disposition Clinical Impression: UTI (urinary tract infection) during Disposition: HOME SELF-CARE Condition: Good Instructions (If sedation given, give patient instructions): Urinary Tract Infection in (ED) Additional Instructions: 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 Prescriptions: Cephalexin [Keflex] 500 mg PO TID 10 Days #30 cap Is patient prescribed a controlled substance at d/c from ED?: No Referrals: Armando Chow MD [Primary Care Provider] - 1-2 days Time of Disposition: 09:18
[2022-09-04 09:13] LABS: Appearance,Urine Turbid (Clear); Bacteria,Urine Occasional /hpf; Bilirubin,Urine Negative (Negative); Blood,Urine Small (Negative); Color,Urine Yellow; Glucose,Urine (UA) Negative (Negative); Ketones,Urine Negative (Negative); Leukocyte Esterase,Urine Large (Negative); Mucus,Urine Many /hpf; Nitrite,Urine Negative (Negative); Protein,Urine 2+ (Negative); RBC,Urine 57 /hpf (0-5); Specific Gravity,Urine 1.024 (1.001-1.035); Squamous Epithelial Cell,Urine 131 /hpf (0-4); WBC,Urine >182 /hpf (0-5)
[2022-09-04 09:31] VITALS: BP 131/84; PULSE 99
== END 2022-09-04 09:31 | disposition home or self-care (01) ==
LOC: EC 06:52
DX: O23.41 Unspecified infection of urinary tract in pregnancy, first trimester (principal); J45.909 Unspecified asthma, uncomplicated; F41.9 Anxiety disorder, unspecified; Z87.891 Personal history of nicotine dependence; F12.90 Cannabis use, unspecified, uncomplicated; Z88.1 Allergy status to other antibiotic agents; Z91.018 Allergy to other foods; Z88.8 Allergy status to other drugs, medicaments and biological substances; Z3A.09 9 weeks gestation of pregnancy
CPT/HCPCS: 81001; 81025; 87086; 99283

== ENCOUNTER 2023-04-30 21:02 | Outpatient (CLI) | payer OTHER ==
[2023-04-30 22:06] LABS: Basophils % (A) 0 %; Eosinophils # (A) 0.2 k/uL (0-0.7); Eosinophils % (A) 1 %; HCT 33.7 % (34.0-46.0); HGB 10.8 gm/dL (11.4-16.0); Hypochromasia Slight; Lymphocytes # (A) 3.8 k/uL (1.0-4.8); Lymphocytes % (A) 23 %; MCH 26.6 pg (25.0-35.0); MCV 83.3 fL (80.0-100.0); Mean Platelet Volume 9.1; Monocytes # (A) 0.8 k/uL (0-1.0); Monocytes % (A) 5 %; Neutrophils # (A) 11.6 k/uL (1.3-7.7); Neutrophils % (A) 69 %; Platelet Count 402 k/uL (150-450); RBC 4.04 m/uL (3.80-5.40); RDW 15.1 % (11.5-15.5); WBC 16.7 k/uL (3.8-10.6)
[2023-04-30 22:16] LABS: ALT 12 U/L (4-34); AST 16 U/L (14-36); African American GFR (CKD) >90 (>60 ml/min/1.73 sqM); Blood Urea Nitrogen 6 mg/dL (7-17); LDH 167 U/L (120-246); Non-African American GFR(CKD) >90 (>60 ml/min/1.73 sqM); Uric Acid 4.4 mg/dL (3.7-7.4)
[2023-04-30 22:28] LABS: Appearance,Urine Clear (Clear); Bacteria,Urine Rare /hpf; Bilirubin,Urine Negative (Negative); Blood,Urine Negative (Negative); Color,Urine Light Yellow; Glucose,Urine (UA) Negative (Negative); Ketones,Urine Negative (Negative); Leukocyte Esterase,Urine Small (Negative); Mucus,Urine Rare /hpf; Nitrite,Urine Negative (Negative); Protein,Urine Negative (Negative); RBC,Urine 2 /hpf (0-5); Specific Gravity,Urine 1.008 (1.001-1.035); Squamous Epithelial Cell,Urine 1 /hpf (0-4); Urobilinogen,Urine <2.0 mg/dL (<2.0); WBC,Urine 7 /hpf (0-5)
[2023-04-30 23:00] VITALS: BP 140/94; PULSE 106; RESP 16; TEMP 97.8
--- NOTE | 2023-05-16 19:14 | P.MSEPDOC ---
Presenting Problems - Arrival Data Date of Arrival on Unit: 04/30/23 Time of Arrival on Unit: 21:02 Mode of Transport: Ambulatory - Complaint OB-Reason for Admission/Chief Complaint: Decreased Movement, PIH, Other Comment: swollen legs Medical History - Information : 6 Para: 3 Term: 1 : 2 Abortions: Spontaneous or Elective: 2 Number of Living Children: 3 - Gestational Age Gestational Age by DOLORES (wks/days): 37 Weeks and 5 Days - History Complications: GDM, Breech, Prior , Smoker Review of Systems - Review of Systems Constitutional: No problems Breast: No problems ENT: No problems Cardiovascular: No problems Respiratory: No problems Gastrointestinal: No problems Genitourinary: No problems Musculoskeletal: No problems Neurological: No problems Skin: No problems Vital Signs - Temperature Temperature: 97.8 F Temperature Source: Temporal Artery Scan - Pulse Right Brachial Pulse Rate: 106 Pulse Assessment Method: Automatic Cuff - Respirations Respiratory Rate: 16 Oxygen Delivery Method: Room Air O2 Sat by Pulse Oximetry: 99 - Blood Pressure Right Arm Blood Pressure: 140/94 Blood Pressure Mean: 109 Blood Pressure Source: Automatic Cuff Medical Screen Scoring - Cervical Exam Dilation (cm): 3.5 Effacement (%): 50 Membranes: Intact - Assessment - Baby A Baseline FHR: 125 Heart Rate - NICHD Category: Category I (Normal) NST: Reactive Physician Notification - Physician Notified Physician Notified Date: 04/30/23 Physician Notified Time: 21:34 Physician: Sveta Flores New Order Received: Yes - Notification Comment Comment: [id number]- Dr. Flores called with report on patient that. presents for swollen legs who has been monitored by. primary glost kiln operator for gestational hypertension. Patient. also reports contractions lasting 2 months. Decreased. movement. Blood pressures reviewed. Catrgory 1. heart tones with irregular contractions. Orders. recieved for pre-e blood work, cervical exam, and. repeat blood pressures. 2230- labs, blood pressures, and cervical exam. reviewed with Dr. Flores. Patient approved for. discharge home. Patient to follow up with primary. ob-wharf helper. Maternal Triage Index - Maternal Triage Index Presenting for scheduled procedure w/no complaint: No - Stat/Priority 1 Stat Priority 1: No - Urgent/Priority 2 Urgent Priority 2: Yes Provider Notified: Sveta Flores Provider Notified Time: 21:34 Criteria Met for Priority 2: initial bp 140 /94 Disposition - Disposition OB Disposition: Discharge to home Discharge Date: 04/30/23 Discharge Time: 22:38 I agree with the RN Medical Screening Exam: Yes Case reviewed; plan agreed upon as documented in EMR&OBIX.: Yes Diagnosis: DECREASED MOVEMENTS, THIRD TRIMESTER, FETUS 1
== END 2023-04-30 22:38 ==
LOC: FBPOP 21:02
PROVIDERS: ATTEND Obstetrics & Gynecology Obstetrics
DX: O36.8131 Decreased fetal movements, third trimester, fetus 1 (principal); O99.333 Smoking (tobacco) complicating pregnancy, third trimester; Z3A.37 37 weeks gestation of pregnancy; F17.200 Nicotine dependence, unspecified, uncomplicated; O34.219 Maternal care for unspecified type scar from previous cesarean delivery; O32.1XX0 Maternal care for breech presentation, not applicable or unspecified; O24.419 Gestational diabetes mellitus in pregnancy, unspecified control; Z91.018 Allergy to other foods; Z88.5 Allergy status to narcotic agent; Z88.0 Allergy status to penicillin
CPT/HCPCS: 59025; 36415; 82565; 83615; 84450; 84460; 84520; 84550; 85025; 81001; G0463; 99215